=== PATIENT | female | born 1950 | race Caucasian/White ===

== ENCOUNTER 2019-04-13 18:10 | Observation (INO) ==
[2019-04-13] MEDS ORDERED: Isovue-370 500 ML BOTTLE IVP ONE (18:57)
--- NOTE | 2019-04-13 19:03 | Emergency Department Note ---
Disposition Clinical Impression: Pancytopenia Anemia Qualifiers: Anemia type: unspecified type Qualified Code(s): D64.9 - Anemia, unspecified Abdominal pain Qualifiers: Abdominal location: unspecified location Qualified Code(s): R10.9 - Unspecified abdominal pain Disposition: Admitted As Inpatient Condition: Fair Time of Disposition: 20:33 General Adult HPI - General Chief complaint: ED Recheck/Abnormal Lab/Rx Stated complaint: Needs Blood Transfusion Time Seen by Provider: 04/13/19 18:22 Source: patient Mode of arrival: ambulatory Limitations: no limitations Nursing Notes Reviewed: Yes Vital Signs Reviewed: Yes - History of Present Illness HPI Narrative: Patient is a 68-year-old female that presents emergency Department with reports of a low hemoglobin. Patient states that she had not been feeling well and contacted her primary care provider who sent her in for labs and was found to have a hemoglobin of 6.2 and was told to come here to the emergency department. Patient also states that she is been having a lot of diarrhea recently but has not been having any blood in her stool, blood in her urine or blood in her sputum. Patient states that she has felt more distended and bloated. States that she has had abdominal discomfort and specifically in the left upper quadrant. Patient denies any history of cancer. Patient has being on any blood thinners or chemotherapy medications. Patient denies any prior history of liver dysfunction or liver cancer. Pain Scale: 8 - Related Data Allergies Allergy/AdvReac Type Severity Reaction Status Date / Time rosuvastatin [From Crestor] Allergy Cramping Verified 04/13/19 18:13 of the Muscles Sulfa (Sulfonamide Allergy Hives Verified 04/13/19 18:13 Antibiotics) All systems ED: reviewed and negative except as stated. Constitutional: Denies: fever Cardiovascular: Denies: chest pain Respiratory: Denies: dyspnea Gastrointestinal: Reports: abdominal pain, diarrhea. Denies: nausea, vomiting, hematemesis, melena, hematochezia Genitourinary: Denies: urgency, dysuria, frequency, hematuria Neurological: Denies: weakness, numbness, paresthesias Physical Exam - General Limitations: no limitations General appearance: alert, in no apparent distress - Head Head exam: atraumatic, normocephalic - Eye Eye exam: Present: normal appearance, EOMI - Neck Neck exam: Present: normal inspection, full ROM, trachea midline - Respiratory Respiratory exam: Present: normal lung sounds bilaterally. Absent: respiratory distress, wheezes - Cardiovascular Cardiovascular exam: Present: regular rate, normal rhythm, normal heart sounds, +S1, +S2 - Abdominal Exam Abdominal exam: Present: soft, tenderness, distention, normal bowel sounds. Absent: guarding, rebound, rigidity Abdominal tenderness: Present: LUQ, LLQ, mild - Neurological Exam Neurological exam: Present: alert, oriented X3 - Psychiatric Psychiatric exam: Present: normal affect, normal mood - Skin Skin exam: Present: warm, dry, intact Course Vital Signs Temperature 98.3 F 04/13/19 18:13 Pulse Rate 88 04/13/19 18:13 Respiratory Rate 15 04/13/19 18:13 Blood Pressure 156/72 04/13/19 18:13 O2 Sat by Pulse Oximetry 99 04/13/19 18:13 Temperature 98.3 F 04/13/19 18:14 Pulse Rate 88 04/13/19 18:14 Respiratory Rate 15 04/13/19 18:14 Blood Pressure 156/72 04/13/19 18:14 O2 Sat by Pulse Oximetry 99 04/13/19 18:14 Oxygen Delivery Oxygen Delivery Room Air Medical Decision Making - MDM Narrative Medical decision making narrative: Due the patient's into the emergency department with reports of a low hemoglobin we will obtain basic laboratory testing, PTT/INR, type and screen and a CT scan of the abdomen and pelvis to evaluate for possible intra-abdominal pathology. Patient's blood work is returning the patient has a hemoglobin of 6.4, a INR of 1.2. Patient has no active bleeding. Stool occult was obtained which is negative. A CT scan of the abdomen and pelvis was obtained due to the patient stating that she had some abdominal discomfort. The CT of the abdomen and pelvis shows cirrhosis of liver with moderate volume ascites. There is also some transmural thickening of the colon which could be related to the ascites versus possible inflammatory or infectious etiology. One unit of packed red blood cells was ordered. Patient will be admitted to the hospital for further evaluation and management. I called spoke the admitting hospitalist - Medical Records Medical records reviewed: Yes I reviewed the patient's medical records. - Lab Data Lab results reviewed: Yes I reviewed the patient's lab results. Result diagrams: 04/13/19 18:45 04/13/19 18:45 Lab Results 04/13/19 04/13/19 04/13/19 Range/Units 18:45 18:45 18:45 WBC 3.9 L (4.3-11.1) K/mcL RBC 3.45 L (3.82-4.97) M/mcL Hgb 6.4 L (11.5-15.4) g/dL Hct 23.3 L (35.3-44.9) % MCV 67.5 L (83.0-100.0) fL MCH 18.6 L (28.0-33.3) pg MCHC 27.5 L (31.6-35.5) g/dL RDW 19.9 H (11.5-14.5) % Plt Count 83 L (140-400) K/mcL MPV TNP Reticulocyte # (0.05-0.10) M/mcL Immature Gran % 0.0 (0-4) % Seg Neutrophils % 57.6 % Lymphocytes % 32.0 % Monocytes % 8.8 % Eosinophils % 1.3 % Basophils % 0.3 % Neutrophils # 2.3 (1.6-8.9) K/mcL Lymphocytes # 1.3 (0.6-4.6) K/mcL Monocytes # 0.3 (0.0-1.3) K/mcL Eosinophils # 0.1 (0.0-0.6) K/mcL Basophils # 0.0 (0.0-0.2) K/mcL Hypochromasia Present A (Not Present) Microcytosis Present A (Not Present) Percent Retic (1.6-2.8) % Immature Retic Fraction (11.0-38.0) % Retic Hgb Equivalent (28.61-36.33) pg PT 14.0 H (9.4-12.1) Seconds INR 1.2 APTT 35.4 (26.0-36.0) Seconds Sodium 143 (136-145) mEq/L Potassium 3.8 (3.5-5.1) mEq/L Chloride 110 H (98-107) mEq/L Carbon Dioxide 23 (23-29) mEq/L BUN 10 (8-23) mg/dL Creatinine 0.46 L (0.60-1.20) mg/dL Est GFR ( Amer) > 60 (> 60) Est GFR (Non-Af Amer) > 60 (> 60) BUN/Creatinine Ratio 22 (6-26) Glucose 113 H (70-105) mg/dL Calculated Osmolality 296 (280-300) Calcium 9.0 (8.6-10.3) mg/dL Iron 12 L (50-170) mcg/dL % Saturation 2 L (15-50) % Transferrin 417 H (203-362) mg/dL Ferritin < 8 L (10-120) ng/mL Total Bilirubin 1.1 H (0.3-1.0) mg/dL Direct Bilirubin 0.4 H (0.0-0.2) mg/dL Indirect Bilirubin 0.7 (0.0-1.2) mg/dL AST 43 H (13-39) Units/L ALT 22 (7-52) Units/L Alkaline Phosphatase 97 (34-104) Units/L Serum Total Protein 5.7 L (6.4-8.9) g/dL Albumin 3.6 (3.5-5.7) g/dL Globulin 2.1 L (2.4-3.5) g/dL Albumin/Globulin Ratio 1.7 (1.1-2.2) Stool Occult Bld Scrn (Negative) Hep Bs Antigen (Nonreactive) Blood Type Antibody Screen Crossmatch 04/13/19 04/13/19 04/13/19 Range/Units 18:45 18:45 18:45 WBC (4.3-11.1) K/mcL RBC (3.82-4.97) M/mcL Hgb (11.5-15.4) g/dL Hct (35.3-44.9) % MCV (83.0-100.0) fL MCH (28.0-33.3) pg MCHC (31.6-35.5) g/dL RDW (11.5-14.5) % Plt Count (140-400) K/mcL MPV Reticulocyte # 0.05 (0.05-0.10) M/mcL Immature Gran % (0-4) % Seg Neutrophils % % Lymphocytes % % Monocytes % % Eosinophils % % Basophils % % Neutrophils # (1.6-8.9) K/mcL Lymphocytes # (0.6-4.6) K/mcL Monocytes # (0.0-1.3) K/mcL Eosinophils # (0.0-0.6) K/mcL Basophils # (0.0-0.2) K/mcL Hypochromasia (Not Present) Microcytosis (Not Present) Percent Retic 1.6 (1.6-2.8) % Immature Retic Fraction 15.7 (11.0-38.0) % Retic Hgb Equivalent 15.8 L (28.61-36.33) pg PT (9.4-12.1) Seconds INR APTT (26.0-36.0) Seconds Sodium (136-145) mEq/L Potassium (3.5-5.1) mEq/L Chloride (98-107) mEq/L Carbon Dioxide (23-29) mEq/L BUN (8-23) mg/dL Creatinine (0.60-1.20) mg/dL Est GFR ( Amer) (> 60) Est GFR (Non-Af Amer) (> 60) BUN/Creatinine Ratio (6-26) Glucose (70-105) mg/dL Calculated Osmolality (280-300) Calcium (8.6-10.3) mg/dL Iron (50-170) mcg/dL % Saturation (15-50) % Transferrin (203-362) mg/dL Ferritin (10-120) ng/mL Total Bilirubin (0.3-1.0) mg/dL Direct Bilirubin (0.0-0.2) mg/dL Indirect Bilirubin (0.0-1.2) mg/dL AST (13-39) Units/L ALT (7-52) Units/L Alkaline Phosphatase (34-104) Units/L Serum Total Protein (6.4-8.9) g/dL Albumin (3.5-5.7) g/dL Globulin (2.4-3.5) g/dL Albumin/Globulin Ratio (1.1-2.2) Stool Occult Bld Scrn (Negative) Hep Bs Antigen Nonreactive (Nonreactive) Blood Type A POSITIVE Antibody Screen NEGATIVE Crossmatch See Detail 04/13/19 Range/Units 19:55 WBC (4.3-11.1) K/mcL RBC (3.82-4.97) M/mcL Hgb (11.5-15.4) g/dL Hct (35.3-44.9) % MCV (83.0-100.0) fL MCH (28.0-33.3) pg MCHC (31.6-35.5) g/dL RDW (11.5-14.5) % Plt Count (140-400) K/mcL MPV Reticulocyte # (0.05-0.10) M/mcL Immature Gran % (0-4) % Seg Neutrophils % % Lymphocytes % % Monocytes % % Eosinophils % % Basophils % % Neutrophils # (1.6-8.9) K/mcL Lymphocytes # (0.6-4.6) K/mcL Monocytes # (0.0-1.3) K/mcL Eosinophils # (0.0-0.6) K/mcL Basophils # (0.0-0.2) K/mcL Hypochromasia (Not Present) Microcytosis (Not Present) Percent Retic (1.6-2.8) % Immature Retic Fraction (11.0-38.0) % Retic Hgb Equivalent (28.61-36.33) pg PT (9.4-12.1) Seconds INR APTT (26.0-36.0) Seconds Sodium (136-145) mEq/L Potassium (3.5-5.1) mEq/L Chloride (98-107) mEq/L Carbon Dioxide (23-29) mEq/L BUN (8-23) mg/dL Creatinine (0.60-1.20) mg/dL Est GFR ( Amer) (> 60) Est GFR (Non-Af Amer) (> 60) BUN/Creatinine Ratio (6-26) Glucose (70-105) mg/dL Calculated Osmolality (280-300) Calcium (8.6-10.3) mg/dL Iron (50-170) mcg/dL % Saturation (15-50) % Transferrin (203-362) mg/dL Ferritin (10-120) ng/mL Total Bilirubin (0.3-1.0) mg/dL Direct Bilirubin (0.0-0.2) mg/dL Indirect Bilirubin (0.0-1.2) mg/dL AST (13-39) Units/L ALT (7-52) Units/L Alkaline Phosphatase (34-104) Units/L Serum Total Protein (6.4-8.9) g/dL Albumin (3.5-5.7) g/dL Globulin (2.4-3.5) g/dL Albumin/Globulin Ratio (1.1-2.2) Stool Occult Bld Scrn Negative (Negative) Hep Bs Antigen (Nonreactive) Blood Type Antibody Screen Crossmatch - Radiology Data Radiology results reviewed: Yes I reviewed the patient's radiology results. Abdomen/Pelvis CT 04/13/19 18:57 IMPRESSION: Cirrhosis with portal hypertension, resulting in moderate volume ascites along with mesenteric fat stranding. There is mural thickening of the large bowel on right and to a lesser extent small bowel within the left abdomen. That is nonspecific, and may be secondary to hypoproteinemia coupled with portal hypertension. However, the possibility of infectious, inflammatory, or ischemic enteritis/colitis also remains in the differential. Cholelithiasis. D/ / Fausto Hackett MD / Fausto Hackett MD Interpreting Provider: Fausto Hackett MD Critical Care Time Critical Care Time: Yes Total Critical Care Time: 35 Attestation: Please see my note Attestation Statement - Attestation Attestation: I examined this patient and my medical decision-making was reviewed with the Resident Physician. I agree with the documented findings, disposition and treatment plan as described except to the extent set forth below. Patient at this time does have evidence of anemia, the patient does appear somewhat pale, she does have pale conjunctiva. The patient has some pain to the left upper quadrant. There is tenderness to the lower left rib region as well. The patient has clear breath sounds on examination. The patient states that she has been having some lightheadedness and shortness of breath as well. Patient states that she has been feeling somewhat fatigued. The patient at this point I did blood work done earlier yesterday, this showed evidence of anemia. The patient appears to have pancytopenia. Patient denies any liver problems. She denies any black stools, however she has been having chronic diarrhea issues. Patient appears to have microcytic anemia. But she also has a pancytopenia, she is found on CT to have cirrhosis, with moderate volume ascites. Patient shows no evidence of sepsis. The patient at this point time is going to be admitted. She was transfused one unit of blood down in the emergency room. Patient at this point in time will be admitted in stable condition to the floor. CRITICAL CARE TIME OF 35 MINUTES PERFORMING THIS INDIVIDUAL OUTSIDE OF SEPARATELY BILLABLE PROCEDURES. THIS INCLUDES BEDSIDE EVALUATION, INTERPRETATION OF EKG AND LAB TESTS AND CONSULTATIONS.e
[2019-04-13 19:07] LABS: Red Cell Distribution Width 19.9 % (11.5-14.5)
[2019-04-13 19:09] LABS: Basophils % 0.3 %; Eosinophils # 0.1 K/mcL (0.0-0.6); Eosinophils % 1.3 %; Hematocrit 23.3 % (35.3-44.9); Hemoglobin 6.4 g/dL (11.5-15.4); Mean Corpuscular HGB Conc 27.5 g/dL (31.6-35.5); Mean Corpuscular Hemoglobin 18.6 pg (28.0-33.3); Mean Corpuscular Volume 67.5 fL (83.0-100.0); Monocytes # 0.3 K/mcL (0.0-1.3); Monocytes % 8.8 %; Red Blood Count 3.45 M/mcL (3.82-4.97); Segmented Neutrophils % 57.6 %; White Blood Count 3.9 K/mcL (4.3-11.1)
[2019-04-13 19:13] LABS: Lymphocytes # 1.3 K/mcL (0.6-4.6); Neutrophils # 2.3 K/mcL (1.6-8.9)
[2019-04-13 19:15] LABS: Hypochromasia Present (Not Present); Microcytosis Present (Not Present); Platelet Count 83 K/mcL (140-400)
[2019-04-13 19:16] LABS: INR 1.2
[2019-04-13 19:19] LABS: Activated Partial Thrombo Time 35.4 Seconds (26.0-36.0)
[2019-04-13 19:26] LABS: BUN/Creatinine Ratio 22 (6-26); Blood Urea Nitrogen 10 mg/dL (8-23); Carbon Dioxide 23 mEq/L (23-29); Chloride 110 mEq/L (98-107); Glucose 113 mg/dL (70-105); Osmolality,Calculated 296 (280-300); Potassium 3.8 mEq/L (3.5-5.1); Sodium 143 mEq/L (136-145); eGFR For African Americans > 60 (> 60); eGFR For Non-African Americans > 60 (> 60)
[2019-04-13] MEDS ORDERED: *HR* Dextrose 50 % in Water (Syg) 50 ML SYRINGE IVP PRN (20:39)
[2019-04-13] MEDS ORDERED: Dextrose Gel 15 GM/37.5 ML TUBE PO PRN ×2 (20:39)
[2019-04-13] MEDS ORDERED: Ringers Solution, Lactated 1,000 ML IVC SCH (21:00)
[2019-04-13 21:07] LABS: Immature Reticulocyte % 15.7 % (11.0-38.0); Retculocyte # 0.05 M/mcL (0.05-0.10); Reticulocyte % 1.6 % (1.6-2.8)
[2019-04-13 21:15] LABS: % Iron Saturation 2 % (15-50); Alanine Aminotransferase 22 Units/L (7-52); Albumin 3.6 g/dL (3.5-5.7); Albumin/Globulin Ratio 1.7 (1.1-2.2); Alkaline Phosphatase 97 Units/L (34-104); Aspartate Amino Transferase 43 Units/L (13-39); Bilirubin,Direct 0.4 mg/dL (0.0-0.2); Bilirubin,Indirect 0.7 mg/dL (0.0-1.2); Bilirubin,Total 1.1 mg/dL (0.3-1.0); Globulin 2.1 g/dL (2.4-3.5); Iron 12 mcg/dL (50-170); Total Protein 5.7 g/dL (6.4-8.9); Transferrin 417 mg/dL (203-362)
--- NOTE | 2019-04-13 21:24 | Internal Med History&Physical ---
Date of Encounter: 04/13/19 Time of Encounter: 21:22 Internal Medicine - H&P: HPI Chief complaint: abdominal pain Admitted From: Home Plans for Post Hospital Care: Home History of present illness: Mandy Tapia is a 68-year-old woman with diabetes, hypertension and coronary artery disease with 1 stent who has been having diarrhea on and off for years that she and her physician attributed to metformin but over the past one month has developed abdominal distention and bloating with significant pain in her left upper quadrant coupled with worsening of her diarrhea. She also reports increasing fatigue, feeling cold and decreased exercise tolerance. She denies seeing blood in her stool or vomiting blood at any time. She also denies fever and chills. She reports the stool as being occasionally watery and other times just loose but that it happens multiple times a day. Her PCP did routine blood work yesterday and today was noted to have a hemoglobin of 6.2 so she was contacted and instructed to come to the emergency room for further evaluation. Repeat blood work confirmed this finding. CT scan of her abdomen was done and showed cirrhosis with portal hypertension resulting in moderate volume ascites, mesenteric fat stranding, splenomegaly and multiple gastric and gastroesophageal varices. She reports having declined colonoscopies in the past, does not drink alcohol and is unaware of contagion with viral hepatitis. She is admitted for further care. Vitals: Reviewed General: Well-developed white woman lying comfortably in bed in no acute distress. Skin: Warm, dry and pale. HEENT: Moist mucous membranes. Mild conjunctivae pallor. Neck: No lymphadenopathy. No JVD. No carotid bruits. No palpable thyroid. Chest: Normal thoracic expansion. Normal breath sounds. Clear to auscultation. Heart: Normal S1 & S2; rhythmic. No rubs or murmurs. Abdomen: Distended, soft and tender to palpation in the left upper quadrant. No peritoneal reaction. Extremities: No clubbing, cyanosis or edema. No calf tenderness. Normal distal pulses. Neurological: Awake, alert and oriented to person, place and time. No focal deficits. Psych: Affect appropriate. Assessment/Plan 1. Symptomatic anemia: Etiology unclear. It may very well be from chronic disease noting that she is equally leukopenic and thrombocytopenic as can be seen in chronic liver disease which we now have evidence of. Will need to ensure there is no blood loss component however given the varicosal findings in the GI tract, the hypochromia and microcytosis. FOBT is negative which is reassuring but she will still benefit from endoscopic evaluations. Will transfuse 1U pRBC now and assess her response to this. Keep her NPO past midnight pending GI evaluation in the morning. 2. Liver cirrhosis: New diagnosis and the etiology is yet to be determined. Differentials include NAFLD given her obesity, hyperlipidemia and diabetes (c alculated fibrosis score of 3.788), viral hepatitis, autoimmune hepatitis, primary biliary cirrhosis and even celiac disease or primary sclerosing cholangitis given the association of chronic postprandial diarrhea. Congestive hepatopathy, alpha-1 antitrypsin and hemochromatosis are unlikely. Will obtain LFTs, check viral hepatitis serologies, BEATRICE, antismooth muscle & antimitochondrial Abs in the interim. GI consult requested. 3. Chronic diarrhea: Will get a stool panel to rule out any infectious etiology. Will also check a celiac panel. 4. Diabetes: Recent A1C showing excellent control. Place on sliding scale for now. Past Med Surg Social Fam HX - Past Medical History Medical history: myocardial infarction Psychiatric history: no psych history - Social History Smoking Status: Never smoker Smokeless Tobacco Status: No Alcohol use: none Drug use: none Internal Medicine - H&P: Meds Allergy/AdvReac Type Severity Reaction Status Date / Time rosuvastatin [From Crestor] Allergy Cramping Verified 04/13/19 18:13 of the Muscles Sulfa (Sulfonamide Allergy Hives Verified 04/13/19 18:13 Antibiotics) All Systems PM: A 10-system review of systems was performed and is negative for pertinent findings except as documented above in the HPI. Family history reviewed and found non-contributory. - Constitutional Vitals: Temp Pulse Resp BP Pulse Ox 98.3 F 88 15 156/72 99 04/13/19 18:14 04/13/19 18:14 04/13/19 18:14 04/13/19 18:14 04/13/19 18:14 Exam: . Internal Med - H&P Results - Labs CBC & Chem 7: 04/13/19 18:45 04/13/19 18:45 Labs: Short CBC 04/13/19 Range/Units 18:45 WBC 3.9 L (4.3-11.1) K/mcL Hgb 6.4 L (11.5-15.4) g/dL Hct 23.3 L (35.3-44.9) % Plt Count 83 L (140-400) K/mcL Neutrophils # 2.3 (1.6-8.9) K/mcL BMP 04/13/19 18:45 Sodium 143 Potassium 3.8 Chloride 110 H Carbon Dioxide 23 BUN 10 Creatinine 0.46 L Glucose 113 H Calcium 9.0 Liver Function 04/13/19 Range/Units 18:45 Total Bilirubin 1.1 H (0.3-1.0) mg/dL Direct Bilirubin 0.4 H (0.0-0.2) mg/dL AST 43 H (13-39) Units/L ALT 22 (7-52) Units/L Alkaline Phosphatase 97 (34-104) Units/L Albumin 3.6 (3.5-5.7) g/dL - Impressions ITS Impressions Abdomen/Pelvis CT 04/13/19 18:57 IMPRESSION: Cirrhosis with portal hypertension, resulting in moderate volume ascites along with mesenteric fat stranding. There is mural thickening of the large bowel on right and to a lesser extent small bowel within the left abdomen. That is nonspecific, and may be secondary to hypoproteinemia coupled with portal hypertension. However, the possibility of infectious, inflammatory, or ischemic enteritis/colitis also remains in the differential. Cholelithiasis. D/ / Fausto Hackett MD / Fausto Hackett MD Interpreting Provider: Fausto Hackett MD - Time Spent With Patient Total time spent is greater than 50% in coordination of care (as documented) at patient's floor/unit and/or counseling patient:
[2019-04-13 21:28] LABS: Hepatitis B Surface Antigen Nonreactive (Nonreactive)
[2019-04-13 21:32] LABS: Ferritin < 8 ng/mL (10-120)
[2019-04-13] MEDS ORDERED: 0.9 % Sodium Chloride 250 ML ONE (21:39)
[2019-04-13 21:57] LABS: Hepatitis C Virus Antibody Nonreactive (Nonreactive)
[2019-04-13 21:58] LABS: Hepatitis B Core IgM Nonreactive (Nonreactive)
[2019-04-13 21:59] LABS: Hepatitis A Antibody IgM Nonreactive (Nonreactive)
[2019-04-13] MEDS ORDERED: Ondansetron 4 MG/2 ML VIAL IVP ONE (22:22)
[2019-04-14] MEDS: Insulin LISPRO 300 UNITS/3 ML VIAL SQ SCH ×4 (00:38→17:20)
[2019-04-14] MEDS ORDERED: traMADol 50 MG TABLET PO ONE (01:09)
[2019-04-14] MEDS: *HR* Promethazine 25 MG/ML VIAL IVP PRN ×4 (01:30→16:15)
[2019-04-14 06:29] LABS: Basophils % 0.3 %; Immature Granulocytes % 0.3 % (0-4); Mean Corpuscular Hemoglobin 19.9 pg (28.0-33.3); Red Blood Count 3.52 M/mcL (3.82-4.97); Red Cell Distribution Width 21.2 % (11.5-14.5)
[2019-04-14 06:31] LABS: Eosinophils # 0.1 K/mcL (0.0-0.6); Eosinophils % 1.9 %; Hematocrit 24.1 % (35.3-44.9); Lymphocytes # 0.9 K/mcL (0.6-4.6); Lymphocytes % 29.2 %; Mean Corpuscular Volume 68.5 fL (83.0-100.0); Monocytes # 0.3 K/mcL (0.0-1.3); Monocytes % 9.1 %; Neutrophils # 1.8 K/mcL (1.6-8.9); Segmented Neutrophils % 59.2 %; White Blood Count 3.1 K/mcL (4.3-11.1)
[2019-04-14 06:32] LABS: Platelet Count 71 K/mcL (140-400)
[2019-04-14 06:49] LABS: Anisocytosis 2+ (Not Present); Hypochromasia Present (Not Present)
[2019-04-14 06:50] LABS: Platelet Estimate Decreased (Normal); Polychromasia 1+ (Not Present)
[2019-04-14 11:52] LABS: Hematocrit 24.5 % (35.3-44.9)
[2019-04-14] MEDS ORDERED: 0.9 % Sodium Chloride 250 ML ONE ×2 (11:57→15:33)
--- NOTE | 2019-04-14 12:32 | Gastroenterology Consult Note ---
Date of Encounter: 04/14/19 Time of Encounter: 11:00 - Assessment and plan (1) Abdominal pain Status: Acute Assessment and plan: Plan EGD and colonoscopy. Discussed risks and benefits she signed informed consent Qualifiers: Abdominal location: unspecified location Qualified Code(s): R10.9 - Unspeci fied abdominal pain (2) Anemia Status: Acute Assessment and plan: Plan EGD and colonoscopy risks and benefits discussed scheduled for tomorrow Qualifiers: Anemia type: iron deficiency Iron deficiency anemia type: other iron deficiency Qualified Code(s): D50.8 - Other iron deficiency anemias (3) Cirrhosis of liver Status: Acute Assessment and plan: Most likely secondary to nonalcoholic fatty liver disease. the other markers are pending while HEPATITIS PROFILE IS NEGATIVE We discussed her cirrhosis and its management and made aware that she she had decompensated cirrhosis given the ascites portal hypertension and varices on CT scan Qualifiers: Hepatic cirrhosis type: unspecified hepatic cirrhosis Ascites presence: with ascites Qualified Code(s): K74.60 - Unspecified cirrhosis of liver; R18.8 - Other ascites (4) Pancytopenia Status: Acute Assessment and plan: Secondary to hypersplenism secondary cirrhosis and portal hypertension (5) Diabetes type 2, controlled Status: Chronic Assessment and plan: Per hospitalist service Qualifiers: 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 Tapia is a 68 year old female presents with severe anemia microcytic indices and cirrhosis. She does not drink any alcohol is never had no history of any melena hematochezia or hematemesis. CT scan reveals cirrhosis with ascites and portal hypertension and esophageal varices. She was unaware that she had cirrhosis. Patient was diabetes and other issues as described below. Past Med Surg Social Fam HX - Past Medical History Medical history: myocardial infarction Psychiatric history: no psych history - Social History Smoking Status: Former smoker Smokeless Tobacco Status: No Alcohol use: none Drug use: none - Gastrointestinal Gastrointestinal: Present: as per HPI, abdominal pain, bloating, dyspepsia - Constitutional Constitutional: as per HPI, fatigue - Constitutional Vitals: Temp Pulse Resp BP Pulse Ox 97.4 F L 74 18 145/75 97 04/14/19 12:10 04/14/19 12:10 04/14/19 12:10 04/14/19 12:10 04/14/19 12:10 - Head Head exam: Present: atraumatic, normal inspection, normocephalic - Eye Eye exam: Present: EOMI, PERRL Additional comments: pallor Results - Labs CBC & Chem 7: 04/15/19 10:04 04/15/19 10:04 Labs: Entire Visit 04/14/19 04/14/19 06:10 11:32 Hgb 7.0 L 7.0 L Hct 24.1 L 24.5 L - ABG ABG results: PT/INR, D-dimer PT 14.0 Seconds (9.4-12.1) H 04/13/19 18:45 - Impressions Impressions Abdomen/Pelvis CT 04/13/19 18:57 IMPRESSION: Cirrhosis with portal hypertension, resulting in moderate volume ascites along with mesenteric fat stranding. There is mural thickening of the large bowel on right and to a lesser extent small bowel within the left abdomen. That is nonspecific, and may be secondary to hypoproteinemia coupled with portal hypertension. However, the possibility of infectious, inflammatory, or ischemic enteritis/colitis also remains in the differential. Cholelithiasis. D/ / Fausto Hackett MD / Fausto Hackett MD Interpreting Provider: Fausto Hackett MD Consult Discharge Plan - Plan Instructions: Simethicone (By mouth), Pantoprazole (By mouth), Colonoscopy (DC), Cirrhosis (DC), Upper Gastrointestinal Endoscopy (DC), Anemia (GEN) Referrals: Kavon Newsome MD [Partnered Physician] - 04/15/19 (web requested 04/15/2019) Brenna Armstrong CNP [Primary Care Provider] - (Web requested 04/15/2019) Prescriptions: Ferrous Sulfate 324 mg PO DAILY 15 Days #15 tablet. Simethicone [Phazyme] 250 mg PO BIDWM 15 Days #30 capsule Pantoprazole Sodium [Protonix] 40 mg PO DAILY 15 Days #15 tablet.
--- NOTE | 2019-04-14 12:42 | Internal Med Progress Note ---
Hospitalist Progress Note - Encounter Date of Encounter: 04/14/19 Time of Encounter: 12:38 - Subjective Interval History: Pt was seen and examined at bedside. Patient reports mild abdominal discomfort. Denied episodes of diarrhea since she was hospitalized. He denied any fever and chills. Denied any nausea and vomiting. - Exam Vitals: Temp Pulse Resp BP Pulse Ox 98.1 F 74 18 145/75 100 04/14/19 12:16 04/14/19 12:16 04/14/19 12:16 04/14/19 12:16 04/14/19 12:16 Exam: General: A & O 3, In no acute distress HENNT: PERRLA. Head atraumatic and makes supple CVS S1 and S2 regular, no murmur RS: Clear to air entry bilaterally, no wheeze, no crackles Abdomen: Soft and nontender. Distended. Bowel sounds 4. No rebound tenderness and guarding Extremities: No cyanosis, clubbing, and edema Neurology: Cranial II-XII ormal. Motor strength 5/5 bilaterally. Sensation intact - Assessment and Plan (1) Anemia Current Visit: Yes Status: Acute Assessment and Plan: Medicines medicines to the hospital with symptomatic anemia. Patient complaining of fatigue and tired. Patient also reported abdominal pain. Upon initial evaluation patient is having iron deficiency anemia. Patient also found out chronic liver disease with cirrhosis. Patient received 1 transfusion yesterday. We will give transfusion 2 today. Repeat H&H. FOBT negative. Iron studies showed low ferritin. Start on ferrous sulfate daily GI on consult. Plan is to do EGD and colonoscopy tomorrow. (2) Cirrhosis of liver Current Visit: Yes Status: Acute Assessment and Plan: Pt presents to ER with complaint of abdominal pain and diarrhea. CT scan showed cirrhosis with moderate ascites. Patient denies any alcohol use. AST and ALT mildly elevated. Patient's Andra for viral hepatitis negative. Autoimmune workup ordered. GI is on consult. On exam patient does not have a severe abdominal tenderness. SBP is less likely. IR consulted. IR does not think t hat patient has much fluid buildup for paracentesis. GI on consult will continue to monitor. (3) Diabetes type 2, controlled Current Visit: Yes Status: Chronic Assessment and Plan: on sliding scale insulin and will continue to monitor. (4) Essential (primary) hypertension Current Visit: Yes Status: Chronic Assessment and Plan: Resume home medication. (5) CAD (coronary artery disease) Current Visit: Yes Status: Acute Assessment and Plan: We will resume home medication after confirmation. DVT Prophylaxis: YOLANDA Varma - Time Spent with Patient Total time spent is greater than 50% in coordination of care (as documented) at patient's floor/unit and/or counseling patient: 25 - 35 minutes Plan of Care Discussed with: patient Internal Medicine: Result - Labs CBC & Chem 7: 04/14/19 11:32 04/13/19 18:45 Labs: Short CBC 04/13/19 04/14/19 04/14/19 Range/Units 18:45 06:10 11:32 WBC 3.9 L 3.1 L (4.3-11.1) K/mcL Hgb 6.4 L 7.0 L 7.0 L (11.5-15.4) g/dL Hct 23.3 L 24.1 L 24.5 L (35.3-44.9) % Plt Count 83 L 71 L (140-400) K/mcL Neutrophils # 2.3 1.8 (1.6-8.9) K/mcL BMP 04/13/19 18:45 Sodium 143 Potassium 3.8 Chloride 110 H Carbon Dioxide 23 BUN 10 Creatinine 0.46 L Glucose 113 H Calcium 9.0 Liver Function 04/13/19 Range/Units 18:45 Total Bilirubin 1.1 H (0.3-1.0) mg/dL Direct Bilirubin 0.4 H (0.0-0.2) mg/dL AST 43 H (13-39) Units/L ALT 22 (7-52) Units/L Alkaline Phosphatase 97 (34-104) Units/L Albumin 3.6 (3.5-5.7) g/dL - ABG Interpretation ABG results: PT/INR, D-dimer PT 14.0 Seconds (9.4-12.1) H 04/13/19 18:45 - Impressions Impressions Abdomen/Pelvis CT 04/13/19 18:57 IMPRESSION: Cirrhosis with portal hypertension, resulting in moderate volume ascites along with mesenteric fat stranding. There is mural thickening of the large bowel on right and to a lesser extent small bowel within the left abdomen. That is nonspecific, and may be secondary to hypoproteinemia coupled with portal hypertension. However, the possibility of infectious, inflammatory, or ischemic enteritis/colitis also remains in the differential. Cholelithiasis. D/ / Fausto Hackett MD / Fausto Hackett MD Interpreting Provider: Fausto Hackett MD - VTE Documentation of Mechanical Device: Graduated compression elastic hosiery Consult Discharge Plan - Plan Referrals: Brenna Armstrong, STITCH BONDING MACHINE TENDER [Primary Care Provider] - (1) Anemia Qualifiers: Anemia type: unspecified type Qualified Code(s): D64.9 - Anemia, unspecified (3) Diabetes type 2, controlled Qualifiers: Diabetes mellitus prison insulin use: without prison use Diabetes mellitus complication status: with unspecified complications Qualified Code(s): E11.8 - Type 2 diabetes mellitus with unspecified complications
[2019-04-14] MEDS ORDERED: Nitroglycerin 0.4 MG TAB.SUBL SL PRN (17:29)
[2019-04-14] MEDS: Lisinopril 20 MG TABLET PO SCH (17:52)
[2019-04-14 17:57] LABS: Adenovirus F 40/41 PCR Not detected (Not detect); Astrovirus PCR Not detected (Not detect); C.difficile Toxin A/B Gene PCR Not detected (Not detect); Campylobacter by PCR Not detected (Not detect); Cryptosporidium by PCR Not detected (Not detect); Cyclospora cayetanensis PCR Not detected (Not detect); E. coli O157 by PCR Not detected (Not detect); Entamoeba histolytica PCR Not detected (Not detect); Enteroaggregative E.coli(EAEC) Not detected (Not detect); Enteropathogenic E.coli(EPEC) Not detected (Not detect); Enterotoxigenic E.coli (ETEC) Not detected (Not detect); Giardia lamblia PCR Not detected (Not detect); Norovirus GI/GII PCR Not detected (Not detect); Plesiomonas shigelloides PCR Not detected (Not detect); Rotavirus A PCR Not detected (Not detect); Salmonella PCR Not detected (Not detect); Sapovirus PCR Not detected (Not detect); Shig/EnteroinvasiveE coli EIEC Not detected (Not detect); Shigalike tox-prod E coli STEC Not detected (Not detect); Vibrio PCR Not detected (Not detect); Vibrio cholerae PCR Not detected (Not detect); Yersinia enterocolitica PCR Not detected (Not detect)
[2019-04-14] MEDS: Famotidine 20 MG TABLET PO SCH (20:32)
[2019-04-14 21:01] LABS: Hematocrit 33.1 % (35.3-44.9); Hemoglobin 9.9 g/dL (11.5-15.4)
[2019-04-15] MEDS: Insulin LISPRO 300 UNITS/3 ML VIAL SQ SCH ×2 (00:05→05:53)
[2019-04-15] MEDS ORDERED: *HR* Propofol 200 MG/20 ML VIAL IVP ONE (07:10)
[2019-04-15] MEDS ORDERED: Lidocaine -MPF 2% 2 ML VIAL ONE (07:10)
[2019-04-15] MEDS ORDERED: Ondansetron 4 MG/2 ML VIAL ONE (07:10)
[2019-04-15] MEDS ORDERED: *HR* Succinylcholine 200 MG/10 ML VIAL IVP ONE (07:10)
--- NOTE | 2019-04-15 07:35 | Anesthesia Evaluation PreOp ---
Date of Encounter: 04/15/19 Time of Encounter: 07:40 - Past History Planned Operation: Double Endo Cardiac History: HTN, Hyperlipidemia, Cardiac Stent (CADS Stent X1), Other (Anemia) Pulmonary History: Denies Any Significant HX AUTOMOTIVE VEHICLE INSPECTOR History: Denies Any Significant HX Other Medical History: Hepatic (Cirrhosis), Diabetes Type II Anesthesia History: No Prior Anesthetic Complications : No Alcohol Use: none Drug use: none Medications and Allergies Aspirin [Lo-Dose Aspirin EC] 81 mg PO DAILY 04/14/19 [History] Atorvastatin Calcium [Lipitor] 80 mg PO QPM 04/14/19 [History] Diphenoxylate/Atropine [Lomotil 2.5 mg/0.025 mg] 1 tab PO QID PRN 04/14/19 [ History] GlipiZIDE XL (24 HR) [Glucotrol XL] 10 mg PO DAILY 04/14/19 [History] Lisinopril [Zestril] 20 mg PO DAILY 04/14/19 [History] Nitroglycerin [Nitrostat] 0.4 mg SL Q5MIN PRN MDD X3 DOSES 04/14/19 [History] Ondansetron HCl [Zofran] 4 mg PO QID PRN 04/14/19 [History] Raloxifene [Evista] 60 mg PO DAILY 04/14/19 [History] Sitagliptin Phos/Metformin HCl [Janumet 50-1,000 mg Tablet] 1 tab PO BIDWM 04/14/19 [History] hydrOXYzine HCl [Hydroxyzine HCl] 25 mg PO BID PRN 04/14/19 [History] raNITIdine HCl [Zantac] 150 mg PO BID 04/14/19 [History] Allergy/AdvReac Type Severity Reaction Status Date / Time rosuvastatin [From Crestor] Allergy Cramping Verified 04/14/19 14:22 of the Muscles Sulfa (Sulfonamide Allergy Hives Verified 04/14/19 14:22 Antibiotics) TAPE AdvReac Hives Uncoded 04/14/19 14:22 - Meds/Allergy Pre-op Review Medications Reviewed: Yes Allergies Reviewed: Yes Beta Blockers on Current Med List: No Anesthesia Results - Labs 04/14/19 20:26 04/13/19 18:45 Anesthesia Exam O2 Sat Weight 88.5 kg O2 Sat by Pulse Oximetry 96 O2 Sat by Pulse Oximetry 97 O2 Sat by Pulse Oximetry 100 O2 Sat by Pulse Oximetry 98 O2 Sat by Pulse Oximetry 99 O2 Sat by Pulse Oximetry 99 O2 Sat by Pulse Oximetry 100 O2 Sat by Pulse Oximetry 100 O2 Sat by Pulse Oximetry 97 O2 Sat by Pulse Oximetry 97 O2 Sat by Pulse Oximetry 100 Vital Signs Temp Pulse Resp BP Pulse Ox 98.3 F 88 15 156/72 99 04/13/19 18:13 04/13/19 18:13 04/13/19 18:13 04/13/19 18:13 04/13/19 18:13 Height: 5'2 Weight: 195 lbs NPO (# of Hours): MN Pain Scale: 0 - HEENT Pupil (Motor): Pupils equal, EOMI Mallampati: III Teeth: Edentulous Oral Opening: Less than or equal to 3 - AUTOMOTIVE VEHICLE INSPECTOR LOC: Oriented AUTOMOTIVE VEHICLE INSPECTOR Motor: Normal RUE, Normal LUE, Normal RLE, Normal LLE, Normal Face AUTOMOTIVE VEHICLE INSPECTOR Sensory: Normal: RUE, LUE, RLE, LLE, Face - Cardiac Rhythm: Regular Murmur: None JVD: No Carotid Bruit: No - Pulmonary Breath Sounds: bilateral Clear Respiratory Effort: Symmetrical Anesthesia Assess/Plan ASA Score: 3 (HTN Anemia CAD DM) Level of consciousness: Cooperative, Oriented Anesthetic Plan: MAC Autologous Blood: No Monitoring Plan: Standard Monitors Recovery Plan: Other (Discussed MAC, agrees to proceed)
[2019-04-15] MEDS: Famotidine 20 MG TABLET PO SCH (07:37)
[2019-04-15] MEDS: Lisinopril 20 MG TABLET PO SCH (07:37)
[2019-04-15] MEDS ORDERED: Simethicone 40 MG/0.6 ML MLS IR ONE (07:51)
[2019-04-15] MEDS ORDERED: Aspirin 81 MG TAB.CHEW PO SCH (09:00)
--- NOTE | 2019-04-15 09:49 | Anesthesia Evaluation Post Op ---
Date of Encounter: 04/15/19 Time of Encounter: 09:40 - Vital Signs Vital Signs: Vital Signs/O2 Sat/Glucose, Most Current Temp Pulse Resp BP Pulse Ox 04/15/19 08:53 80 16 136/68 99 04/15/19 07:05 99.0 F 84 16 144/74 - Lungs Lungs: Clear Ascult./Percussion - Airway Airway: Non-obstructed - Cardiovascular Regular Rate - Mental Status Mental Status: Alert & Oriented, Answers Appropriately - Pain Pain Scale: 0 - Nausea Vomiting Nausea Vomiting: Not Present - Hydration Hydration: NPO - Discharge PostOp Status: Transfer Patient to floor
[2019-04-15 10:27] VITALS: BP 112/55
[2019-04-15 10:38] LABS: Immature Granulocytes % 0.2 % (0-4); Mean Corpuscular Hemoglobin 21.7 pg (28.0-33.3)
[2019-04-15 10:40] LABS: Basophils % 0.5 %; Eosinophils # 0.1 K/mcL (0.0-0.6); Eosinophils % 1.4 %; Hematocrit 33.2 % (35.3-44.9); Immature Platelets 11.1 % (1.1-6.1); Lymphocytes # 1.1 K/mcL (0.6-4.6); Lymphocytes % 25.4 %; Mean Corpuscular HGB Conc 30.1 g/dL (31.6-35.5); Monocytes # 0.3 K/mcL (0.0-1.3); Monocytes % 6.8 %; Neutrophils # 2.8 K/mcL (1.6-8.9); Red Blood Count 4.61 M/mcL (3.82-4.97); Red Cell Distribution Width 22.8 % (11.5-14.5); Segmented Neutrophils % 65.7 %; White Blood Count 4.3 K/mcL (4.3-11.1)
[2019-04-15 10:45] LABS: Platelet Count 77 K/mcL (140-400)
[2019-04-15 10:59] LABS: Alanine Aminotransferase 24 Units/L (7-52); Albumin 3.5 g/dL (3.5-5.7); Albumin/Globulin Ratio 1.8 (1.1-2.2); Alkaline Phosphatase 91 Units/L (34-104); Aspartate Amino Transferase 44 Units/L (13-39); Bilirubin,Total 2.4 mg/dL (0.3-1.0); Blood Urea Nitrogen 6 mg/dL (8-23); Calcium 8.9 mg/dL (8.6-10.3); Carbon Dioxide 25 mEq/L (23-29); Chloride 112 mEq/L (98-107); Glucose 108 mg/dL (70-105); Osmolality,Calculated 302 (280-300); Potassium 3.6 mEq/L (3.5-5.1); Sodium 147 mEq/L (136-145); Total Protein 5.5 g/dL (6.4-8.9)
[2019-04-15 11:40] LABS: BUN/Creatinine Ratio 13 (6-26); eGFR For African Americans > 60 (> 60); eGFR For Non-African Americans > 60 (> 60)
[2019-04-15] MEDS ORDERED: Insulin LISPRO 300 UNITS/3 ML VIAL SQ SCH ×2 (12:00→21:00)
[2019-04-15] MEDS ORDERED: Simethicone 40 MG/0.6 ML MLS PO STA (14:19)
[2019-04-15] MEDS ORDERED: Pantoprazole 40 MG VIAL IVP ONE (14:20)
--- NOTE | 2019-04-15 14:26 | Discharge Summary ---
- NOTES TO OUTPATIENT PROVIDER Notes to Outpatient Provider: Patient presents to the hospital with complaint of abdominal pain. Patient found to have liver cirrhosis with gastroesophageal arises. GI consult was placed patient underwent EGD and colonoscopy. Follow-up with patient in 1 week follow-up with GI in 1 week. Follow up on celiac panel, antimitochondrial antibody, anti-smooth muscle antibody. Orders not resulted at time of discharge: Pending orders 04/13/19 04:00 BEATRICE IgG [place] rflx IFA Stat Celiac Disease Reflex [place] Stat Mitochondrial M2 Antibody, IgG Stat Smooth Muscle Antibody, IgG Stat Estimated PT Needs at Discharge: None Date of Encounter: 04/15/19 Time of Encounter: 14:20 - Discharge Diagnosis (1) Cirrhosis of liver Priority: Primary Status: Acute Qualifiers: Hepatic cirrhosis type: unspecified hepatic cirrhosis Ascites presence: with ascites Qualified Code(s): K74.60 - Unspecified cirrhosis of liver; R18.8 - Other ascites (2) Anemia Priority: Secondary Status: Acute Qualifiers: Anemia type: iron deficiency Iron deficiency anemia type: other iron deficiency Qualified Code(s): D50.8 - Other iron deficiency anemias (3) Diabetes type 2, controlled Priority: Secondary Status: Chronic Qualifiers: Diabetes mellitus penitentiary insulin use: without rat exterminator use Diabetes mellitus complication status: with unspecified complications Qualified Code(s): E11.8 - Type 2 diabetes mellitus with unspecified complications (4) Essential (primary) hypertension Priority: Secondary Status: Chronic (5) CAD (coronary artery disease) Priority: Secondary Status: Acute Qualifiers: Coronary Disease-Associated Artery/Lesion type: [place] artery [place] vs. transplanted heart: [place] heart Associated angina: without angina Qualified Code(s): I25.10 - Atherosclerotic heart disease of [place] coronary artery without angina pectoris Hospital course: Ms. Tapia is a 68 year old female was admitted to hospital for symptom and anemia and abdominal pain. Upon presentation patient was found to be anemic with hemoglobin around 6-7. Patient is to pick RBC transfusion 3. Recent hemoglobin on discharge was 10. A CT was done and patient found to have cirrhosis. GI was placed on consult. Patient underwent EGD and colonoscopy. EGD and colonoscopy was negative for any active bleeding. Patient was discharged in stable condition. Follow up with patient in 1 week with primary care provider. Follow up with GI in 1 week. She was advised to continue Zantac. Patient was prescribed Protonix daily and also Symantec on to be taken twice daily for indigestion. Patient discharged in stable condition. He was also discharged on ferrous sulfate 325 mg to be taken daily. Discharge discussed with: patient, nurse, area development consultant - Time Spent with Patient Total time spent providing and/or coordinating discharge services: 35 Time spent: Greater than 30 minutes - Discharge Medications Prescriptions: New Simethicone [Phazyme] 250 mg PO BIDWM 15 Days #30 capsule Pantoprazole Sodium [Protonix] 40 mg PO DAILY 15 Days #15 tablet.dr Continued Sitagliptin Phos/Metformin HCl [Janumet 50-1,000 mg Tablet] 1 tab PO BIDWM raNITIdine HCl [Zantac] 150 mg PO BID Nitroglycerin [Nitrostat] 0.4 mg SL Q5MIN PRN MDD X3 DOSES PRN Reason: Chest Pain Lisinopril [Zestril] 20 mg PO DAILY Atorvastatin Calcium [Lipitor] 80 mg PO QPM Ondansetron HCl [Zofran] 4 mg PO QID PRN PRN Reason: NAUSEA/VOMITING hydrOXYzine HCl [Hydroxyzine HCl] 25 mg PO BID PRN PRN Reason: Anxiety Diphenoxylate/Atropine [Lomotil 2.5 mg/0.025 mg] 1 tab PO QID PRN PRN Reason: Diarrhea Raloxifene [Evista] 60 mg PO DAILY GlipiZIDE XL (24 HR) [Glucotrol XL] 10 mg PO DAILY Aspirin [Lo-Dose Aspirin EC] 81 mg PO DAILY Home Medications: Aspirin [Lo-Dose Aspirin EC] 81 mg PO DAILY 04/14/19 [History] Atorvastatin Calcium [Lipitor] 80 mg PO QPM 04/14/19 [History] Diphenoxylate/Atropine [Lomotil 2.5 mg/0.025 mg] 1 tab PO QID PRN 04/14/19 [History] GlipiZIDE XL (24 HR) [Glucotrol XL] 10 mg PO DAILY 04/14/19 [History] Lisinopril [Zestril] 20 mg PO DAILY 04/14/19 [History] Nitroglycerin [Nitrostat] 0.4 mg SL Q5MIN PRN MDD X3 DOSES 04/14/19 [History] Ondansetron HCl [Zofran] 4 mg PO QID PRN 04/14/19 [History] Raloxifene [Evista] 60 mg PO DAILY 04/14/19 [History] Sitagliptin Phos/Metformin HCl [Janumet 50-1,000 mg Tablet] 1 tab PO BIDWM 04/14/19 [History] hydrOXYzine HCl [Hydroxyzine HCl] 25 mg PO BID PRN 04/14/19 [History] raNITIdine HCl [Zantac] 150 mg PO BID 04/14/19 [History] Pantoprazole Sodium [Protonix] 40 mg PO DAILY 15 Days #15 tablet. 04/15/19 [Rx] Simethicone [Phazyme] 250 mg PO BIDWM 15 Days #30 capsule 04/15/19 [Rx] Allergies/Adverse Reactions: Allergy/AdvReac Type Severity Reaction Status Date / Time rosuvastatin [From Crestor] Allergy Cramping Verified 04/14/19 14:22 of the Muscles Sulfa (Sulfonamide Allergy Hives Verified 04/14/19 14:22 Antibiotics) TAPE AdvReac Hives Uncoded 04/14/19 14:22 Date of admission: 04/13/19 20:46 Primary care physician: Brenna Armstrong CNP Consults: 04/13/19 21:11 Consult to Gastroenterology [CONS] Routine Consulting Provider: Gastroenterology Renu Reason for Consult: New onset diagnosis of liver cirrhosis with anemia requiring blood transfusion Call Completed: No 04/14/19 09:23 Consult to Gastroenterology [CONS] Stat Consulting Provider: Gastroenterology Renu Reason for Consult: Gastroesophageal varices with anemia Call Completed: Yes Discharging clinician: Anton Wilson - Constitutional Vitals: Temp Pulse Resp BP Pulse Ox 99.1 F 84 16 112/55 99 04/15/19 10:22 04/15/19 10:22 04/15/19 10:22 04/15/19 10:22 04/15/19 08:53 General appearance: Present: cooperative, A&O X 3 Exam: General: A & O 3, In no acute distress HENNT: PERRLA. Head atraumatic and makes supple CVS S1 and S2 regular, no murmur RS: Clear to air entry bilaterally, no wheeze, no crackles Abdomen: Soft and nontender. Distended. Bowel sounds 4. No rebound tenderness and guarding Extremities: No cyanosis, clubbing, and edema Neurology: Cranial II-XII ormal. Motor strength 5/5 bilaterally. Sensation intact - Patient Status Disposition: Home, Self-Care Condition: Good Functional capacity at discharge: independent ambulation Overall status at discharge: patient is progressing back to baseline - Discharge Instructions Instructions: Colonoscopy (DC), Cirrhosis (DC), Upper Gastrointestinal Endoscopy (DC), Anemia (GEN) Follow Up With: Kavon Newsome MD [Partnered Physician] - Brenna Armstrong CNP [Primary Care Provider] - - Diet and Activity Activity: increase activity as tolerated Diet: diabetic diet, low salt diet - VTE Documentation of Mechanical Device: Graduated compression elastic hosiery
[2019-04-17 09:43] LABS: ANA IgG by ELISA NONE DETECTED (None Detected); Immunoglobulin A (CELIAC) 75 mg/dL (68-408); Smooth Muscle Ab Titer IgG <1:20 (<1:20)
[2019-04-17 09:49] LABS: Tissue Transglutaminase IgA 0 U/mL (0-3)
== END 2019-04-15 15:33 | disposition home or self-care (01) ==
LOC: 2ANU 18:10 → EMEROOARM 18:10 → SUATTDRO 20:46 → 2ANU 20:52
PROVIDERS: ADMIT Internal Medicine; ATTEND Family Medicine
PROC: ENDOCCB (2019-04-15 08:00)

== ENCOUNTER 2020-11-06 17:25 | Observation (INO) ==
[2020-11-06] MEDS ORDERED: Isovue-370 500 ML BOTTLE IVP ONE (17:51)
[2020-11-06 18:22] LABS: Basophils % 0.4 %; Hemoglobin 10.8 g/dL (11.5-15.4); Immature Granulocytes % 0.2 % (0-4); Red Cell Distribution Width 16.7 % (11.5-14.5)
[2020-11-06] MEDS ORDERED: 0.9 % Sodium Chloride 1,000 ML IVC ONE (18:23)
[2020-11-06 18:24] LABS: Eosinophils % 0.2 %; Hematocrit 34.3 % (35.3-44.9); Immature Platelets 9.6 % (1.1-6.1); Lymphocytes # 1.2 K/mcL (0.6-4.6); Lymphocytes % 24.3 %; Mean Corpuscular HGB Conc 31.5 g/dL (31.6-35.5); Mean Corpuscular Hemoglobin 28.1 pg (28.0-33.3); Mean Corpuscular Volume 89.3 fL (83.0-100.0); Monocytes # 0.3 K/mcL (0.0-1.3); Monocytes % 6.8 %; Neutrophils # 3.4 K/mcL (1.6-8.9); Red Blood Count 3.84 M/mcL (3.82-4.97); Segmented Neutrophils % 68.1 %
[2020-11-06 18:27] LABS: Platelet Count 88 K/mcL (140-400)
[2020-11-06 18:29] LABS: INR 1.4; Prothrombin Time 15.9 Seconds (9.4-12.1)
[2020-11-06 18:41] LABS: Albumin 3.2 g/dL (3.5-5.7); Albumin/Globulin Ratio 1.3 (1.1-2.2); Calcium 9.1 mg/dL (8.6-10.3); Globulin 2.4 g/dL (2.4-3.5); Potassium 4.3 mEq/L (3.5-5.1); Total Protein 5.6 g/dL (6.4-8.9)
[2020-11-06 19:04] LABS: Bilirubin,Urine Negative (Negative); Blood,Urine Large (Negative); Clarity,Urine Clear (Clear); Color,Urine Yellow (Yellow); Glucose,Urine (UA) Normal (Normal); Hyaline Casts,Urine Few per lpf (None Seen); Ketones,Urine Negative (Negative); Leukocyte Esterase,Urine Negative (Negative); Mucus,Urine Few per lpf (None-Few); Nitrite,Urine Negative (Negative); PH,Urine 5.5 pH Units (5.0-8.0); Protein,Urine Trace mg/dL (Neg-Trace); RBC,Urine 0-3 per hpf (0-3); Specific Gravity,Urine 1.017 (1.010-1.025); Squamous Epithelial Cell,Urine Few per hpf (None-Few); Urobilinogen,Urine Normal (Normal); WBC,Urine 0-3 per hpf (0-3)
[2020-11-06] MEDS ORDERED: Naloxone 0.4 MG/ML INJ IVP PRN (21:10)
[2020-11-06] MEDS ORDERED: Ondansetron 4 MG/2 ML VIAL IVP PRN (21:10)
[2020-11-06] MEDS ORDERED: Dextrose Gel 15 GM/37.5 ML TUBE PO PRN ×2 (21:17)
[2020-11-06] MEDS ORDERED: D5% in Water 1,000 ML IVC PRN (21:17)
[2020-11-06] MEDS ORDERED: *HR* Dextrose 50 % in Water (Vial) 50 ML VIAL IVP PRN (21:17)
[2020-11-06] MEDS: *HR* Heparin 5,000 UNIT/ML VIAL SQ SCH (22:29)
[2020-11-06] MEDS: Insulin LISPRO 300 UNITS/3 ML VIAL SUBQ SCH (22:31)
[2020-11-06] MEDS: Pantoprazole 40 MG VIAL IVP SCH (22:40)
[2020-11-07 00:22] LABS: Basophils % 0.3 %; Red Cell Distribution Width 16.5 % (11.5-14.5)
[2020-11-07 00:24] LABS: Hematocrit 33.1 % (35.3-44.9); Hemoglobin 10.3 g/dL (11.5-15.4); Immature Granulocytes % 0.3 % (0-4); Immature Platelets 7.5 % (1.1-6.1); Lymphocytes % 30.9 %; Mean Corpuscular HGB Conc 31.1 g/dL (31.6-35.5); Mean Corpuscular Hemoglobin 28.4 pg (28.0-33.3); Mean Corpuscular Volume 91.2 fL (83.0-100.0); Mean Platelet Volume 12.6 fL (9.4-12.4); Monocytes # 0.2 K/mcL (0.0-1.3); Monocytes % 5.8 %; Neutrophils # 2.1 K/mcL (1.6-8.9); Red Blood Count 3.63 M/mcL (3.82-4.97); Segmented Neutrophils % 62.7 %; White Blood Count 3.3 K/mcL (4.3-11.1)
[2020-11-07 00:25] LABS: Platelet Count 68 K/mcL (140-400)
[2020-11-07 00:32] LABS: INR 1.4; Prothrombin Time 15.9 Seconds (9.4-12.1)
[2020-11-07 00:38] LABS: BUN/Creatinine Ratio 15 (6-26); Blood Urea Nitrogen 16 mg/dL (8-23); Calcium 8.6 mg/dL (8.6-10.3); Carbon Dioxide 25 mEq/L (23-29); Chloride 109 mEq/L (98-107); Glucose 82 mg/dL (70-105); Osmolality,Calculated 292 (280-300); Potassium 3.8 mEq/L (3.5-5.1); Sodium 141 mEq/L (136-145); eGFR For African Americans > 60 (> 60); eGFR For Non-African Americans 52 (> 60)
[2020-11-07] MEDS: *HR* Heparin 5,000 UNIT/ML VIAL SQ SCH (02:43)
[2020-11-07] MEDS: Insulin LISPRO 300 UNITS/3 ML VIAL SUBQ SCH ×3 (07:52→17:55)
[2020-11-07] MEDS ORDERED: Aspirin Enteric Coated 81 MG Tablet PO SCH (09:00)
[2020-11-07] MEDS: Pantoprazole 40 MG VIAL IVP SCH (10:49)
[2020-11-07] MEDS ORDERED: cefTRIAXone 1,000 MG in Water for inj. (sterile) 10 ML IVP SCH (12:00)
[2020-11-07] MEDS: Albumin 25% 25gram/100mL 25 GM/100 ML IV.SOLN IVC SCH ×2 (15:00→17:00)
[2020-11-07 15:12] VITALS: BP 124/73
[2020-11-07 15:21] LABS: Source of Body Fluid ascites
[2020-11-07 16:57] LABS: Appearance of Body Fluid Clear (Clear); Volume of Body Fluid 60 mL
[2020-11-10 10:52] LABS: Fluid Source for Albumin PERITONEAL FL.
== END 2020-11-07 19:32 | disposition home or self-care (01) ==
LOC: 3ANU 17:25 → EMEROOARM 17:25 → SUATTDRO 20:41 → 3ANU 21:57
PROVIDERS: ADMIT Student in an Organized Health Care Education/Training Program; ATTEND Student in an Organized Health Care Education/Training Program

== ENCOUNTER 2020-11-14 21:50 | Inpatient (IN) ==
[2020-11-14] MEDS ORDERED: Albuterol 2.5 MG/3 ML NEBULIZER IH ONE (22:15)
[2020-11-14] MEDS ORDERED: Insulin Human Regular 10 UNIT in 0.9 % Sodium Chloride 10 ML IV ONE (22:15)
[2020-11-14] MEDS ORDERED: Calcium Gluconate 1gm/50mL 1 GM/50 ML BAG IVPB STA ×2 (22:15→22:36)
[2020-11-14] MEDS ORDERED: Calcium Gluconate 1,000 MG/10 ML VIAL IVP ONE (22:16)
[2020-11-14 22:29] LABS: Basophils % 0.4 %; Eosinophils # 0.2 K/mcL (0.0-0.6); Eosinophils % 2.9 %; Hematocrit 39.8 % (35.3-44.9); Hemoglobin 11.8 g/dL (11.5-15.4); Immature Granulocytes % 0.4 % (0-4); Mean Corpuscular HGB Conc 29.6 g/dL (31.6-35.5); Mean Corpuscular Hemoglobin 27.6 pg (28.0-33.3); Mean Corpuscular Volume 93.2 fL (83.0-100.0); Mean Platelet Volume 12.1 fL (9.4-12.4); Monocytes # 0.6 K/mcL (0.0-1.3); Monocytes % 7.1 %; Neutrophils # 5.1 K/mcL (1.6-8.9); Platelet Count 130 K/mcL (140-400); Red Blood Count 4.27 M/mcL (3.82-4.97); Red Cell Distribution Width 16.7 % (11.5-14.5); Segmented Neutrophils % 64.2 %
[2020-11-14] MEDS ORDERED: *HR* Dextrose 50 % in Water (Vial) 50 ML VIAL IVP ONE (22:30)
[2020-11-14] MEDS ORDERED: Calcium Gluconate 1gm/50mL 1 GM/50 ML BAG IVPB ONE ×2 (22:30→23:05)
[2020-11-14 22:46] LABS: Calcium 9.3 mg/dL (8.6-10.3); Magnesium 1.9 mg/dL (1.6-2.6); Phosphorous 2.2 mg/dL (2.7-4.5); Potassium 6.6 mEq/L (3.5-5.1)
[2020-11-14] MEDS ORDERED: Ondansetron 4 MG/2 ML VIAL IVP STA (22:54)
[2020-11-15 01:00] LABS: Bacteria,Urine Few per hpf (None-Few); Bilirubin,Urine Negative (Negative); Blood,Urine Large (Negative); Clarity,Urine Turbid (Clear); Color,Urine Yellow (Yellow); Glucose,Urine (UA) Normal (Normal); Hyaline Casts,Urine Many per lpf (None Seen); Ketones,Urine Negative (Negative); Leukocyte Esterase,Urine Small (Negative); Mucus,Urine Few per lpf (None-Few); Nitrite,Urine Negative (Negative); PH,Urine 5.5 pH Units (5.0-8.0); Protein,Urine 100 mg/dL (Neg-Trace); RBC,Urine TNTC per hpf (0-3); Specific Gravity,Urine 1.021 (1.010-1.025); Squamous Epithelial Cell,Urine Moderate per hpf (None-Few); Urobilinogen,Urine Normal (Normal); WBC,Urine 50-100 per hpf (0-3)
[2020-11-15] MEDS ORDERED: 0.9 % Sodium Chloride 1,000 ML IVC ONE ×2 (01:10→04:10)
[2020-11-15 01:20] LABS: INR 1.3; Prothrombin Time 15.3 Seconds (9.4-12.1)
[2020-11-15 03:29] LABS: Calcium 9.5 mg/dL (8.6-10.3); Potassium 5.8 mEq/L (3.5-5.1)
[2020-11-15] MEDS ORDERED: Melatonin 3 MG TABLET PO PRN (04:08)
[2020-11-15] MEDS ORDERED: Naloxone 0.4 MG/ML INJ IVP PRN (04:08)
[2020-11-15] MEDS ORDERED: Ondansetron 4 MG/2 ML VIAL IVP PRN (04:08)
[2020-11-15] MEDS ORDERED: Calcium Gluconate 1gm/50mL 1 GM/50 ML BAG IVPB ONE (04:10)
[2020-11-15] MEDS ORDERED: *HR* Dextrose 50 % in Water (Vial) 50 ML VIAL IVP PRN (04:15)
[2020-11-15] MEDS ORDERED: Dextrose Gel 15 GM/37.5 ML TUBE PO PRN ×2 (04:15)
[2020-11-15] MEDS ORDERED: D5% in Water 1,000 ML IVC PRN (04:15)
[2020-11-15] MEDS ORDERED: Albuterol 2.5 MG/3 ML NEBULIZER IH ONE (04:17)
[2020-11-15] MEDS ORDERED: Insulin LISPRO 300 UNITS/3 ML VIAL SUBQ ONE (04:30)
[2020-11-15 07:57] LABS: Hematocrit 37.3 % (35.3-44.9); Immature Platelets 9.6 % (1.1-6.1); Mean Corpuscular HGB Conc 29.5 g/dL (31.6-35.5); Mean Corpuscular Hemoglobin 27.5 pg (28.0-33.3); Mean Corpuscular Volume 93.3 fL (83.0-100.0); Mean Platelet Volume 12.6 fL (9.4-12.4); Red Cell Distribution Width 16.8 % (11.5-14.5); White Blood Count 7.5 K/mcL (4.3-11.1)
[2020-11-15 08:15] LABS: Phosphorous 2.5 mg/dL (2.7-4.5)
[2020-11-15] MEDS ORDERED: cefTRIAXone 1,000 MG in Water for inj. (sterile) 10 ML IVP SCH (09:00)
[2020-11-15 09:27] LABS: Calcium 9.2 mg/dL (8.6-10.3); Potassium 6.7 mEq/L (3.5-5.1)
[2020-11-15] MEDS ORDERED: SODIUM ZIRCONIUM CYCLOSILICATE 5 GM POWD.PACK PO ONE (12:12)
[2020-11-15] MEDS: Sodium Bicarbonate 150 MEQ in D5% in Water 1,000 ML IVC SCH (16:43)
[2020-11-15] MEDS: *HR* Heparin 5,000 UNIT/ML VIAL SQ SCH (16:43)
[2020-11-16 02:07] LABS: Uric Acid 9.7 mg/dL (2.3-7.6)
[2020-11-16 02:58] LABS: Hepatitis B Surface Antigen Nonreactive (Nonreactive)
[2020-11-16 03:27] LABS: Hepatitis B Core IgM Nonreactive (Nonreactive)
[2020-11-16 03:28] LABS: Hepatitis A Antibody IgM Nonreactive (Nonreactive); Hepatitis C Virus Antibody Nonreactive (Nonreactive)
[2020-11-16] MEDS: *HR* Heparin 5,000 UNIT/ML VIAL SQ SCH ×2 (05:36→17:02)
[2020-11-16] MEDS: Sodium Bicarbonate 150 MEQ in D5% in Water 1,000 ML IVC SCH ×2 (05:37→17:02)
[2020-11-16] MEDS ORDERED: Nitroglycerin 0.4 MG TAB.SUBL SL PRN (07:37)
[2020-11-16] MEDS ORDERED: hydrOXYzine pamoate 25 MG CAPSULE PO PRN (08:12)
[2020-11-16 09:08] LABS: Red Cell Distribution Width 16.5 % (11.5-14.5)
[2020-11-16 09:10] LABS: Basophils % 0.4 %; Eosinophils # 0.1 K/mcL (0.0-0.6); Hematocrit 32.5 % (35.3-44.9); Immature Granulocytes % 0.4 % (0-4); Immature Platelets 8.1 % (1.1-6.1); Lymphocytes # 1.6 K/mcL (0.6-4.6); Lymphocytes % 31.5 %; Mean Corpuscular HGB Conc 30.8 g/dL (31.6-35.5); Mean Corpuscular Hemoglobin 27.6 pg (28.0-33.3); Mean Corpuscular Volume 89.8 fL (83.0-100.0); Mean Platelet Volume 13.4 fL (9.4-12.4); Monocytes # 0.4 K/mcL (0.0-1.3); Monocytes % 8.8 %; Neutrophils # 2.9 K/mcL (1.6-8.9); Red Blood Count 3.62 M/mcL (3.82-4.97); Segmented Neutrophils % 57.9 %
[2020-11-16 09:13] LABS: Platelet Count 76 K/mcL (140-400)
[2020-11-16 09:30] LABS: Calcium 8.5 mg/dL (8.6-10.3); Potassium 4.6 mEq/L (3.5-5.1)
[2020-11-16] MEDS: Aspirin Enteric Coated 81 MG Tablet PO SCH (09:43)
[2020-11-16 10:09] LABS: Bacteria,Urine Few per hpf (None-Few); Bilirubin,Urine Small (Negative); Blood,Urine Moderate (Negative); Clarity,Urine Turbid (Clear); Color,Urine Yellow (Yellow); Glucose,Urine (UA) Normal (Normal); Hyaline Casts,Urine Many per lpf (None Seen); Ketones,Urine Negative (Negative); Leukocyte Esterase,Urine Small (Negative); Mucus,Urine Few per lpf (None-Few); Nitrite,Urine Negative (Negative); PH,Urine 5.5 pH Units (5.0-8.0); Protein,Urine 100 mg/dL (Neg-Trace); RBC,Urine 50-100 per hpf (0-3); Squamous Epithelial Cell,Urine Moderate per hpf (None-Few); Urobilinogen,Urine Normal (Normal); WBC,Urine 30-50 per hpf (0-3)
[2020-11-16 10:33] LABS: Protein/Creatinine Ratio,Urine 0.31 mg/mg (0.00-0.20); Sodium, Urine 27.4 mEq/L
[2020-11-17 03:46] LABS: Basophils % 0.4 %; Eosinophils % 0.2 %; Hematocrit 29.9 % (35.3-44.9); Hemoglobin 9.3 g/dL (11.5-15.4); Immature Granulocytes % 0.2 % (0-4); Immature Platelets 7.8 % (1.1-6.1); Lymphocytes # 1.7 K/mcL (0.6-4.6); Lymphocytes % 34.8 %; Mean Corpuscular HGB Conc 31.1 g/dL (31.6-35.5); Mean Corpuscular Hemoglobin 27.8 pg (28.0-33.3); Mean Corpuscular Volume 89.5 fL (83.0-100.0); Mean Platelet Volume 13.3 fL (9.4-12.4); Monocytes # 0.5 K/mcL (0.0-1.3); Neutrophils # 2.7 K/mcL (1.6-8.9); Platelet Count 65 K/mcL (140-400); Red Blood Count 3.34 M/mcL (3.82-4.97); Red Cell Distribution Width 16.5 % (11.5-14.5); Segmented Neutrophils % 54.4 %; White Blood Count 4.9 K/mcL (4.3-11.1)
[2020-11-17 04:00] LABS: Calcium 7.8 mg/dL (8.6-10.3); Potassium 4.1 mEq/L (3.5-5.1)
[2020-11-17 04:01] LABS: Albumin 2.7 g/dL (3.5-5.7); Albumin/Globulin Ratio 1.6 (1.1-2.2); Bilirubin,Direct 0.4 mg/dL (0.0-0.2); Bilirubin,Indirect 0.6 mg/dL (0.0-1.0); Globulin 1.7 g/dL (2.4-3.5); Total Protein 4.4 g/dL (6.4-8.9)
[2020-11-17] MEDS: *HR* Heparin 5,000 UNIT/ML VIAL SQ SCH (05:49)
[2020-11-17] MEDS: Aspirin Enteric Coated 81 MG Tablet PO SCH (09:00)
[2020-11-17] MEDS: Albumin 25% 25gram/100mL 25 GM/100 ML IV.SOLN IVC SCH ×2 (09:00→11:41)
[2020-11-17] MEDS ORDERED: D5% in Water 1,000 ML IVC PRN (09:02)
[2020-11-17] MEDS: Sodium Bicarbonate 150 MEQ in D5% in Water 1,000 ML IVC SCH (13:32)
[2020-11-18 01:59] LABS: Eosinophils % 0.4 %; Immature Granulocytes % 0.2 % (0-4); Mean Platelet Volume 12.8 fL (9.4-12.4); Red Cell Distribution Width 16.3 % (11.5-14.5)
[2020-11-18 02:01] LABS: Basophils % 0.2 %; Hematocrit 30.7 % (35.3-44.9); Hemoglobin 9.7 g/dL (11.5-15.4); Immature Platelets 9.7 % (1.1-6.1); Lymphocytes % 19.3 %; Mean Corpuscular HGB Conc 31.6 g/dL (31.6-35.5); Mean Corpuscular Volume 88.7 fL (83.0-100.0); Monocytes # 0.5 K/mcL (0.0-1.3); Monocytes % 9.4 %; Red Blood Count 3.46 M/mcL (3.82-4.97); Segmented Neutrophils % 70.5 %; White Blood Count 4.9 K/mcL (4.3-11.1)
[2020-11-18 02:03] LABS: Neutrophils # 3.5 K/mcL (1.6-8.9); Platelet Count 57 K/mcL (140-400)
[2020-11-18 02:19] LABS: Calcium 7.8 mg/dL (8.6-10.3); Potassium 4.3 mEq/L (3.5-5.1)
[2020-11-18] MEDS ORDERED: 0.9 % Sodium Chloride 1,000 ML IVC SCH ×2 (05:00→15:00)
[2020-11-18] MEDS: Albumin 25% 25gram/100mL 25 GM/100 ML IV.SOLN IVC SCH ×2 (10:03→12:03)
[2020-11-18] MEDS: Aspirin Enteric Coated 81 MG Tablet PO SCH (10:05)
[2020-11-19 01:59] LABS: Calcium 7.8 mg/dL (8.6-10.3); Potassium 3.6 mEq/L (3.5-5.1)
[2020-11-19] MEDS: Aspirin Enteric Coated 81 MG Tablet PO SCH (07:40)
[2020-11-19] MEDS: Simethicone 80 MG TAB.CHEW PO PRN (07:43)
[2020-11-20 03:32] LABS: Immature Granulocytes % 0.2 % (0-4)
[2020-11-20 03:34] LABS: Basophils % 0.4 %; Eosinophils % 0.8 %; Hematocrit 32.4 % (35.3-44.9); Hemoglobin 9.9 g/dL (11.5-15.4); Immature Platelets 7.4 % (1.1-6.1); Lymphocytes # 1.2 K/mcL (0.6-4.6); Lymphocytes % 23.7 %; Mean Corpuscular HGB Conc 30.6 g/dL (31.6-35.5); Mean Corpuscular Hemoglobin 27.5 pg (28.0-33.3); Mean Platelet Volume 13.1 fL (9.4-12.4); Monocytes # 0.4 K/mcL (0.0-1.3); Monocytes % 8.2 %; Red Cell Distribution Width 16.5 % (11.5-14.5); Segmented Neutrophils % 66.7 %
[2020-11-20 03:35] LABS: Neutrophils # 3.3 K/mcL (1.6-8.9); Platelet Count 49 K/mcL (140-400)
[2020-11-20 03:50] LABS: Calcium 8.1 mg/dL (8.6-10.3); Potassium 3.6 mEq/L (3.5-5.1)
[2020-11-20] MEDS: Aspirin Enteric Coated 81 MG Tablet PO SCH (07:40)
[2020-11-20] MEDS ORDERED: *HR* OxyCODONE Immed Rel 5 MG TABLET PO ONE (08:22)
[2020-11-20] MEDS: Sodium Bicarbonate 150 MEQ in D5% in Water 1,000 ML IVC SCH (18:34)
[2020-11-21] MEDS: Simethicone 80 MG TAB.CHEW PO PRN (01:48)
[2020-11-21 07:15] LABS: Immature Granulocytes % 0.2 % (0-4); Red Cell Distribution Width 16.5 % (11.5-14.5)
[2020-11-21 07:17] LABS: Basophils % 0.5 %; Eosinophils % 0.2 %; Hematocrit 29.7 % (35.3-44.9); Hemoglobin 9.5 g/dL (11.5-15.4); Lymphocytes # 1.1 K/mcL (0.6-4.6); Lymphocytes % 25.6 %; Mean Corpuscular Hemoglobin 28.6 pg (28.0-33.3); Mean Corpuscular Volume 89.5 fL (83.0-100.0); Mean Platelet Volume 12.8 fL (9.4-12.4); Monocytes # 0.4 K/mcL (0.0-1.3); Monocytes % 8.8 %; Neutrophils # 2.7 K/mcL (1.6-8.9); Red Blood Count 3.32 M/mcL (3.82-4.97); Segmented Neutrophils % 64.7 %; White Blood Count 4.2 K/mcL (4.3-11.1)
[2020-11-21 07:19] LABS: Platelet Count 47 K/mcL (140-400)
[2020-11-21] MEDS: Aspirin Enteric Coated 81 MG Tablet PO SCH (07:49)
[2020-11-21 08:01] LABS: Calcium 7.9 mg/dL (8.6-10.3); Potassium 3.6 mEq/L (3.5-5.1)
[2020-11-21 10:49] VITALS: BP 144/83
[2020-11-21 15:38] LABS: Adenovirus Not Detected (Not Detect); Bordetella Pertussis Not Detected (Not Detect); Chlamydophila pneumoniae Not Detected (Not Detect); Coronavirus 229E Not Detected (Not Detect); Coronavirus HKU1 Not Detected (Not Detect); Coronavirus NL63 Not Detected (Not Detect); Coronavirus OC43 Not Detected (Not Detect); Human Metapneumovirus Not Detected (Not Detect); Human Rhinovirus/Enterovirus Not Detected (Not Detect); Influenza A Subtype 2009 H1 Not Detected (Not Detect); Influenza B Not Detected (Not Detect); Mycoplasma pneumoniae Not Detected (Not Detect); Parainfluenza Virus 1 Not Detected (Not Detect); Parainfluenza Virus 2 Not Detected (Not Detect); Parainfluenza Virus 3 Not Detected (Not Detect); Parainfluenza Virus 4 Not Detected (Not Detect); Respiratory Syncytial Virus Not Detected (Not Detect); SARS-CoV-2 Not Detected (Not Detect)
== END 2020-11-21 18:40 | DRG 433 ==
LOC: 2ANU 21:50 → EMEROOARM 21:50 → 2ANU 11-15 02:23 → SUATTDRO 11-15 10:32
PROVIDERS: ADMIT Internal Medicine; ATTEND Family Medicine

== ENCOUNTER 2020-12-26 17:19 | Inpatient (IN) ==
[2020-12-26 18:46] LABS: Basophils % 0.1 %; Hematocrit 35.8 % (35.3-44.9); Hemoglobin 11.4 g/dL (11.5-15.4); Immature Granulocytes % 0.3 % (0-4); Lymphocytes # 1.5 K/mcL (0.6-4.6); Lymphocytes % 14.4 %; Mean Corpuscular HGB Conc 31.8 g/dL (31.6-35.5); Mean Corpuscular Hemoglobin 27.5 pg (28.0-33.3); Mean Corpuscular Volume 86.5 fL (83.0-100.0); Mean Platelet Volume 11.2 fL (9.4-12.4); Monocytes # 1.2 K/mcL (0.0-1.3); Monocytes % 11.5 %; Neutrophils # 7.5 K/mcL (1.6-8.9); Platelet Count 204 K/mcL (140-400); Red Blood Count 4.14 M/mcL (3.82-4.97); Red Cell Distribution Width 17.4 % (11.5-14.5); Segmented Neutrophils % 73.7 %; White Blood Count 10.2 K/mcL (4.3-11.1)
[2020-12-26 18:53] LABS: INR 1.5; Prothrombin Time 16.6 Seconds (9.4-12.1)
[2020-12-26 18:56] LABS: Activated Partial Thrombo Time 28.8 Seconds (26.0-36.0)
[2020-12-26 19:07] LABS: Alanine Aminotransferase 19 Units/L (7-52); Albumin 3.1 g/dL (3.5-5.7); Albumin/Globulin Ratio 1.1 (1.1-2.2); Alkaline Phosphatase 123 Units/L (34-104); Aspartate Amino Transferase 50 Units/L (13-39); BUN/Creatinine Ratio 17 (6-26); Bilirubin,Direct 1.4 mg/dL (0.0-0.2); Bilirubin,Total 3.4 mg/dL (0.3-1.0); Blood Urea Nitrogen 20 mg/dL (8-23); Calcium 8.5 mg/dL (8.6-10.3); Carbon Dioxide 32 mEq/L (23-29); Chloride 91 mEq/L (98-107); Globulin 2.7 g/dL (2.4-3.5); Glucose 131 mg/dL (70-105); Lipase 151 Units/L (11-82); Magnesium 2.4 mg/dL (1.6-2.6); Osmolality,Calculated 274 (280-300); Potassium 3.7 mEq/L (3.5-5.1); Sodium 130 mEq/L (136-145); Total Protein 5.8 g/dL (6.4-8.9); Troponin I < 0.03 ng/mL (< 0.04); eGFR For African Americans 54 (> 60); eGFR For Non-African Americans 44 (> 60)
[2020-12-26] MEDS ORDERED: Isovue-370 500 ML BOTTLE IVP ONE (19:27)
[2020-12-26] MEDS ORDERED: 0.9 % Sodium Chloride 1,000 ML IVC ONE (19:27)
[2020-12-26] MEDS ORDERED: Ondansetron 4 MG/2 ML VIAL IVP ONE (19:27)
[2020-12-26 21:36] LABS: Bacteria,Urine Few per hpf (None-Few); Bilirubin,Urine Negative (Negative); Blood,Urine Negative (Negative); Clarity,Urine Turbid (Clear); Color,Urine Yellow (Yellow); Glucose,Urine (UA) Normal (Normal); Hyaline Casts,Urine Few per lpf (None Seen); Ketones,Urine Negative (Negative); Leukocyte Esterase,Urine Negative (Negative); Mucus,Urine Few per lpf (None-Few); Nitrite,Urine Negative (Negative); PH,Urine 5.5 pH Units (5.0-8.0); Protein,Urine 70 mg/dL (Neg-Trace); Specific Gravity,Urine 1.026 (1.010-1.025); Squamous Epithelial Cell,Urine Few per hpf (None-Few); WBC,Urine 15-30 per hpf (0-3)
[2020-12-26 22:04] LABS: Adenovirus Not Detected (Not Detect); Bordetella Pertussis Not Detected (Not Detect); Chlamydophila pneumoniae Not Detected (Not Detect); Coronavirus 229E Not Detected (Not Detect); Coronavirus HKU1 Not Detected (Not Detect); Coronavirus NL63 Not Detected (Not Detect); Coronavirus OC43 Not Detected (Not Detect); Human Metapneumovirus Not Detected (Not Detect); Human Rhinovirus/Enterovirus Not Detected (Not Detect); Influenza A Subtype 2009 H1 Not Detected (Not Detect); Influenza B Not Detected (Not Detect); Mycoplasma pneumoniae Not Detected (Not Detect); Parainfluenza Virus 1 Not Detected (Not Detect); Parainfluenza Virus 2 Not Detected (Not Detect); Parainfluenza Virus 3 Not Detected (Not Detect); Parainfluenza Virus 4 Not Detected (Not Detect); Respiratory Syncytial Virus Not Detected (Not Detect); SARS-CoV-2 Not Detected (Not Detect)
[2020-12-27] MEDS ORDERED: Naloxone 0.4 MG/ML INJ IVP PRN (00:04)
[2020-12-27 01:56] LABS: Basophils % 0.1 %; Hematocrit 33.7 % (35.3-44.9); Hemoglobin 10.9 g/dL (11.5-15.4); Immature Granulocytes % 0.2 % (0-4); Lymphocytes # 1.5 K/mcL (0.6-4.6); Lymphocytes % 14.7 %; Mean Corpuscular HGB Conc 32.3 g/dL (31.6-35.5); Mean Corpuscular Hemoglobin 27.9 pg (28.0-33.3); Mean Corpuscular Volume 86.2 fL (83.0-100.0); Mean Platelet Volume 10.6 fL (9.4-12.4); Monocytes # 0.7 K/mcL (0.0-1.3); Monocytes % 7.2 %; Platelet Count 175 K/mcL (140-400); Red Blood Count 3.91 M/mcL (3.82-4.97); Red Cell Distribution Width 17.7 % (11.5-14.5); Segmented Neutrophils % 77.8 %; White Blood Count 10.3 K/mcL (4.3-11.1)
[2020-12-27 02:18] LABS: BUN/Creatinine Ratio 20 (6-26); Blood Urea Nitrogen 21 mg/dL (8-23); Calcium 8.2 mg/dL (8.6-10.3); Carbon Dioxide 29 mEq/L (23-29); Chloride 95 mEq/L (98-107); Glucose 127 mg/dL (70-105); Osmolality,Calculated 279 (280-300); Potassium 3.7 mEq/L (3.5-5.1); Sodium 132 mEq/L (136-145); eGFR For African Americans > 60 (> 60); eGFR For Non-African Americans 51 (> 60)
[2020-12-27 02:19] LABS: Alanine Aminotransferase 17 Units/L (7-52); Albumin/Globulin Ratio 1.2 (1.1-2.2); Alkaline Phosphatase 110 Units/L (34-104); Aspartate Amino Transferase 46 Units/L (13-39); BUN/Creatinine Ratio 20 (6-26); Bilirubin,Total 3.4 mg/dL (0.3-1.0); Blood Urea Nitrogen 21 mg/dL (8-23); Calcium 8.2 mg/dL (8.6-10.3); Carbon Dioxide 29 mEq/L (23-29); Chloride 95 mEq/L (98-107); Globulin 2.5 g/dL (2.4-3.5); Glucose 127 mg/dL (70-105); Osmolality,Calculated 279 (280-300); Potassium 3.7 mEq/L (3.5-5.1); Sodium 132 mEq/L (136-145); Total Protein 5.5 g/dL (6.4-8.9); eGFR For African Americans > 60 (> 60); eGFR For Non-African Americans 52 (> 60)
[2020-12-27] MEDS: Ondansetron 4 MG/2 ML VIAL IVP PRN ×2 (11:39→19:38)
[2020-12-27 16:02] LABS: Source of Body Fluid Ascitic fluid
[2020-12-27 16:34] LABS: Appearance of Body Fluid Slightly Hazy (Clear); Volume of Body Fluid 2200 mL
[2020-12-27] MEDS ORDERED: Albumin 25% 25gram/100mL 25 GM/100 ML IV.SOLN IVPB ONE (18:24)
[2020-12-28] MEDS: Furosemide 40 MG TABLET PO SCH (08:28)
[2020-12-28] MEDS: Aspirin Enteric Coated 81 MG Tablet PO SCH (08:28)
[2020-12-28] MEDS ORDERED: Sennosides/Docusate Sodium TABLET PO PRN (12:55)
[2020-12-29 06:08] LABS: Basophils % 0.1 %; Eosinophils # 0.3 K/mcL (0.0-0.6); Eosinophils % 2.9 %; Hematocrit 34.1 % (35.3-44.9); Hemoglobin 10.6 g/dL (11.5-15.4); Immature Granulocytes % 0.3 % (0-4); Lymphocytes # 1.7 K/mcL (0.6-4.6); Lymphocytes % 19.4 %; Mean Corpuscular HGB Conc 31.1 g/dL (31.6-35.5); Mean Corpuscular Hemoglobin 27.2 pg (28.0-33.3); Mean Corpuscular Volume 87.7 fL (83.0-100.0); Monocytes # 0.6 K/mcL (0.0-1.3); Monocytes % 6.4 %; Neutrophils # 6.1 K/mcL (1.6-8.9); Platelet Count 147 K/mcL (140-400); Red Blood Count 3.89 M/mcL (3.82-4.97); Red Cell Distribution Width 17.5 % (11.5-14.5); Segmented Neutrophils % 70.9 %; White Blood Count 8.6 K/mcL (4.3-11.1)
[2020-12-29 06:32] LABS: BUN/Creatinine Ratio 20 (6-26); Blood Urea Nitrogen 20 mg/dL (8-23); Calcium 8.6 mg/dL (8.6-10.3); Carbon Dioxide 31 mEq/L (23-29); Chloride 96 mEq/L (98-107); Glucose 100 mg/dL (70-105); Osmolality,Calculated 283 (280-300); Potassium 3.7 mEq/L (3.5-5.1); Sodium 135 mEq/L (136-145); eGFR For African Americans > 60 (> 60); eGFR For Non-African Americans 54 (> 60)
[2020-12-29 08:30] LABS: Alanine Aminotransferase 16 Units/L (7-52); Albumin/Globulin Ratio 1.4 (1.1-2.2); Alkaline Phosphatase 105 Units/L (34-104); Aspartate Amino Transferase 40 Units/L (13-39); Bilirubin,Indirect 1.3 mg/dL (0.0-1.0); Bilirubin,Total 2.3 mg/dL (0.3-1.0); Globulin 2.2 g/dL (2.4-3.5); Total Protein 5.2 g/dL (6.4-8.9)
[2020-12-29] MEDS: Aspirin Enteric Coated 81 MG Tablet PO SCH (09:48)
[2020-12-29] MEDS: Sennosides/Docusate Sodium TABLET PO SCH ×2 (09:48→20:52)
[2020-12-29] MEDS: Furosemide 40 MG TABLET PO SCH (13:25)
[2020-12-29] MEDS: polyethylene glycoL 3350 17 GM POWD.PACK PO SCH (14:02)
[2020-12-29] MEDS: Albumin 25% 25gram/100mL 25 GM/100 ML IV.SOLN IVPB SCH (17:58)
[2020-12-29] MEDS ORDERED: Albumin 25% 25gram/100mL 25 GM/100 ML IV.SOLN IVPB SCH (18:00)
[2020-12-30] MEDS: Albumin 25% 25gram/100mL 25 GM/100 ML IV.SOLN IVPB SCH ×2 (05:55→09:51)
[2020-12-30 06:09] LABS: Immature Granulocytes % 0.2 % (0-4); Red Blood Count 3.39 M/mcL (3.82-4.97)
[2020-12-30 06:11] LABS: Basophils % 0.2 %; Hematocrit 29.5 % (35.3-44.9); Hemoglobin 9.3 g/dL (11.5-15.4); Immature Platelets 5.6 % (1.1-6.1); Lymphocytes # 1.1 K/mcL (0.6-4.6); Lymphocytes % 22.8 %; Mean Corpuscular HGB Conc 31.5 g/dL (31.6-35.5); Mean Corpuscular Hemoglobin 27.4 pg (28.0-33.3); Mean Platelet Volume 11.1 fL (9.4-12.4); Monocytes # 0.4 K/mcL (0.0-1.3); Monocytes % 7.9 %; Red Cell Distribution Width 17.5 % (11.5-14.5); Segmented Neutrophils % 68.9 %
[2020-12-30 06:13] LABS: Neutrophils # 3.5 K/mcL (1.6-8.9); Platelet Count 86 K/mcL (140-400)
[2020-12-30 06:42] LABS: Alanine Aminotransferase 12 Units/L (7-52); Albumin/Globulin Ratio 1.9 (1.1-2.2); Alkaline Phosphatase 82 Units/L (34-104); Aspartate Amino Transferase 30 Units/L (13-39); BUN/Creatinine Ratio 24 (6-26); Blood Urea Nitrogen 21 mg/dL (8-23); Calcium 8.4 mg/dL (8.6-10.3); Carbon Dioxide 31 mEq/L (23-29); Chloride 98 mEq/L (98-107); Globulin 1.6 g/dL (2.4-3.5); Glucose 101 mg/dL (70-105); Osmolality,Calculated 283 (280-300); Potassium 3.4 mEq/L (3.5-5.1); Sodium 135 mEq/L (136-145); Total Protein 4.6 g/dL (6.4-8.9); eGFR For African Americans > 60 (> 60); eGFR For Non-African Americans > 60 (> 60)
[2020-12-30 06:59] VITALS: BP 94/60
[2020-12-30] MEDS: Aspirin Enteric Coated 81 MG Tablet PO SCH (09:51)
[2020-12-30] MEDS: Sennosides/Docusate Sodium TABLET PO SCH (09:52)
[2020-12-30] MEDS: Furosemide 40 MG TABLET PO SCH (09:52)
[2020-12-30] MEDS: polyethylene glycoL 3350 17 GM POWD.PACK PO SCH (09:52)
== END 2020-12-30 12:47 | disposition home or self-care (01) | DRG 433 ==
LOC: EMEROOARM 17:19 → 3BNU 17:19 → SUATTDRO 23:12 → 3BNU 12-27 01:04
PROVIDERS: ADMIT Family Medicine; ATTEND Student in an Organized Health Care Education/Training Program

== ENCOUNTER 2021-01-08 10:27 | Inpatient (IN) ==
[2021-01-08] MEDS ORDERED: Isovue-370 500 ML BOTTLE IVP ONE (11:05)
[2021-01-08 11:39] LABS: Basophils % 0.2 %; Hematocrit 36.2 % (35.3-44.9); Hemoglobin 12.1 g/dL (11.5-15.4); Immature Granulocytes % 0.3 % (0-4); Lymphocytes # 1.6 K/mcL (0.6-4.6); Lymphocytes % 12.6 %; Mean Corpuscular HGB Conc 33.4 g/dL (31.6-35.5); Mean Corpuscular Hemoglobin 28.5 pg (28.0-33.3); Mean Corpuscular Volume 85.2 fL (83.0-100.0); Monocytes # 0.6 K/mcL (0.0-1.3); Monocytes % 4.7 %; Neutrophils # 10.1 K/mcL (1.6-8.9); Platelet Count 179 K/mcL (140-400); Red Blood Count 4.25 M/mcL (3.82-4.97); Red Cell Distribution Width 17.4 % (11.5-14.5); Segmented Neutrophils % 82.2 %; White Blood Count 12.3 K/mcL (4.3-11.1)
[2021-01-08 12:18] LABS: Alanine Aminotransferase 20 Units/L (7-52); Albumin 3.6 g/dL (3.5-5.7); Albumin/Globulin Ratio 1.6 (1.1-2.2); Alkaline Phosphatase 101 Units/L (34-104); Aspartate Amino Transferase 51 Units/L (13-39); BUN/Creatinine Ratio 17 (6-26); Bilirubin,Direct 1.8 mg/dL (0.0-0.2); Bilirubin,Indirect 2.7 mg/dL (0.0-1.0); Bilirubin,Total 4.5 mg/dL (0.3-1.0); Blood Urea Nitrogen 25 mg/dL (8-23); Calcium 9.7 mg/dL (8.6-10.3); Carbon Dioxide 28 mEq/L (23-29); Chloride 87 mEq/L (98-107); Globulin 2.3 g/dL (2.4-3.5); Glucose 146 mg/dL (70-105); Lipase 118 Units/L (11-82); Osmolality,Calculated 275 (280-300); Potassium 3.5 mEq/L (3.5-5.1); Sodium 129 mEq/L (136-145); Total Protein 5.9 g/dL (6.4-8.9); Troponin I < 0.03 ng/mL (< 0.04); eGFR For African Americans 42 (> 60); eGFR For Non-African Americans 35 (> 60)
[2021-01-08] MEDS ORDERED: *HR* FentaNYL (PF) 100 MCG/2 ML VIAL IVP ONE (13:24)
[2021-01-08] MEDS ORDERED: Metoclopramide 10 MG/2 ML VIAL IVP ONE (13:24)
[2021-01-08] MEDS ORDERED: Albumin 25% 25gram/100mL 25 GM/100 ML IV.SOLN IVPB ONE (15:51)
[2021-01-08] MEDS ORDERED: Acetaminophen 325 MG TABLET PO PRN (16:49)
[2021-01-08] MEDS ORDERED: *HR* HYDROcodone/Acet 5/325 mg TABLET PO PRN (16:49)
[2021-01-08] MEDS ORDERED: Naloxone 0.4 MG/ML INJ IVP PRN (16:49)
[2021-01-08 16:58] LABS: Amylase,Peritoneal Fluid 92 Units/L (No Ref Range); Glucose,Peritoneal Fluid 138 mg/dL (No Ref Range); LDH,Peritoneal Fluid 65 Units/L (No Ref Range); Total Protein,Peritoneal Fluid < 2.0 g/dL
[2021-01-08] MEDS ORDERED: Dextrose Gel 15 GM/37.5 ML TUBE PO PRN ×2 (17:01)
[2021-01-08] MEDS ORDERED: *HR* Dextrose 50 % in Water (Vial) 50 ML VIAL IVP PRN (17:01)
[2021-01-08] MEDS ORDERED: D5% in Water 1,000 ML IVC PRN (17:01)
[2021-01-08] MEDS ORDERED: Simethicone 80 MG TAB.CHEW PO PRN (17:19)
[2021-01-08] MEDS ORDERED: Nitroglycerin 0.4 MG TAB.SUBL SL PRN (17:19)
[2021-01-08] MEDS ORDERED: hydrOXYzine pamoate 25 MG CAPSULE PO PRN (17:19)
[2021-01-08 17:29] LABS: Bilirubin,Urine Moderate (Negative); Blood,Urine Small (Negative); Color,Urine Yellow (Yellow); Glucose,Urine (UA) Normal (Normal); Ketones,Urine Negative (Negative); Leukocyte Esterase,Urine Negative (Negative); Nitrite,Urine Negative (Negative); PH,Urine 5.5 pH Units (5.0-8.0); Protein,Urine >=300 mg/dL (Neg-Trace); Specific Gravity,Urine >= 1.030 (1.010-1.025); Urobilinogen,Urine Normal (Normal)
[2021-01-08 17:30] LABS: Clarity,Urine Turbid (Clear)
[2021-01-08] MEDS ORDERED: cefTRIAXone 2,000 MG in 0.9 % Sodium Chloride Mini Bag 100 ML IVPB SCH (18:00)
[2021-01-08 18:22] LABS: INR 1.5; Prothrombin Time 17.3 Seconds (9.4-12.1)
[2021-01-08] MEDS: cefTRIAXone 2,000 MG in Water for inj. (sterile) 20 ML IVP SCH (18:57)
[2021-01-08 19:07] LABS: Adenovirus Not Detected (Not Detect); Bordetella Pertussis Not Detected (Not Detect); Chlamydophila pneumoniae Not Detected (Not Detect); Coronavirus 229E Not Detected (Not Detect); Coronavirus HKU1 Not Detected (Not Detect); Coronavirus NL63 Not Detected (Not Detect); Coronavirus OC43 Not Detected (Not Detect); Human Metapneumovirus Not Detected (Not Detect); Human Rhinovirus/Enterovirus Not Detected (Not Detect); Influenza A Subtype 2009 H1 Not Detected (Not Detect); Influenza B Not Detected (Not Detect); Mycoplasma pneumoniae Not Detected (Not Detect); Parainfluenza Virus 1 Not Detected (Not Detect); Parainfluenza Virus 2 Not Detected (Not Detect); Parainfluenza Virus 3 Not Detected (Not Detect); Parainfluenza Virus 4 Not Detected (Not Detect); Respiratory Syncytial Virus Not Detected (Not Detect); SARS-CoV-2 Not Detected (Not Detect)
[2021-01-08] MEDS: Sennosides/Docusate Sodium TABLET PO SCH (20:47)
[2021-01-08] MEDS: Lactulose Oral Soln 20 GM/30 ML UDC PO SCH (20:47)
[2021-01-08] MEDS ORDERED: Melatonin 3 MG TABLET PO PRN (21:00)
[2021-01-09 05:04] LABS: Hematocrit 32.5 % (35.3-44.9); Immature Granulocytes % 0.3 % (0-4); Lymphocytes # 0.9 K/mcL (0.6-4.6); Lymphocytes % 10.2 %; Mean Corpuscular Hemoglobin 27.5 pg (28.0-33.3); Mean Platelet Volume 11.2 fL (9.4-12.4); Monocytes # 0.5 K/mcL (0.0-1.3); Monocytes % 5.4 %; Neutrophils # 7.7 K/mcL (1.6-8.9); Platelet Count 122 K/mcL (140-400); Red Blood Count 3.78 M/mcL (3.82-4.97); Red Cell Distribution Width 17.2 % (11.5-14.5); Segmented Neutrophils % 84.1 %; White Blood Count 9.2 K/mcL (4.3-11.1)
[2021-01-09 05:07] LABS: Hemoglobin 10.4 g/dL (11.5-15.4)
[2021-01-09 05:12] LABS: INR 1.6; Prothrombin Time 18.1 Seconds (9.4-12.1)
[2021-01-09 05:24] LABS: Albumin 3.3 g/dL (3.5-5.7); Albumin/Globulin Ratio 1.8 (1.1-2.2); Bilirubin,Total 3.5 mg/dL (0.3-1.0); Calcium 9.2 mg/dL (8.6-10.3); Globulin 1.8 g/dL (2.4-3.5); Magnesium 1.9 mg/dL (1.6-2.6); Phosphorous 3.6 mg/dL (2.7-4.5); Potassium 3.2 mEq/L (3.5-5.1); Total Protein 5.1 g/dL (6.4-8.9)
[2021-01-09 05:48] LABS: Folate 6.5 ng/mL (3.0-16.0)
[2021-01-09 05:51] LABS: Vitamin B12 > 1500 pg/mL (250-1100)
[2021-01-09] MEDS: Aspirin Enteric Coated 81 MG Tablet PO SCH (08:19)
[2021-01-09] MEDS: Albumin 25% 25gram/100mL 25 GM/100 ML IV.SOLN IVPB SCH (08:20)
[2021-01-09] MEDS: Multivit/Ca/Min/Fe/FA 1 TAB TABLET PO SCH (08:20)
[2021-01-09] MEDS: Sennosides/Docusate Sodium TABLET PO SCH ×2 (08:27→20:30)
[2021-01-09] MEDS: Lactulose Oral Soln 20 GM/30 ML UDC PO SCH ×2 (08:27→20:30)
[2021-01-09 09:48] LABS: RBC,Peritoneal Fluid 4000 RBC/mcL
[2021-01-09 10:30] LABS: Basophils,Peritoneal Fluid 0 %; Eosinophils,Peritoneal Fluid 0 %
[2021-01-09 10:32] LABS: Appearance of Peritoneal Fl CLOUDY (Clear)
[2021-01-09 11:42] LABS: Hematocrit 33.2 % (35.3-44.9); Hemoglobin 10.4 g/dL (11.5-15.4)
[2021-01-09] MEDS: cefTRIAXone 2,000 MG in Water for inj. (sterile) 20 ML IVP SCH (18:09)
[2021-01-10 06:11] LABS: Phosphorous 2.7 mg/dL (2.7-4.5); Potassium 3.5 mEq/L (3.5-5.1)
[2021-01-10 06:32] LABS: Hemoglobin 11.2 g/dL (11.5-15.4); Red Cell Distribution Width 17.2 % (11.5-14.5)
[2021-01-10 06:34] LABS: Hematocrit 34.4 % (35.3-44.9); Immature Platelets 7.6 % (1.1-6.1); Mean Corpuscular HGB Conc 32.6 g/dL (31.6-35.5); Mean Corpuscular Hemoglobin 27.6 pg (28.0-33.3); Mean Corpuscular Volume 84.7 fL (83.0-100.0); Mean Platelet Volume 11.8 fL (9.4-12.4); Red Blood Count 4.06 M/mcL (3.82-4.97); White Blood Count 12.1 K/mcL (4.3-11.1)
[2021-01-10] MEDS: Aspirin Enteric Coated 81 MG Tablet PO SCH (09:01)
[2021-01-10] MEDS: Lactulose Oral Soln 20 GM/30 ML UDC PO SCH ×2 (09:02→20:45)
[2021-01-10] MEDS: Sennosides/Docusate Sodium TABLET PO SCH ×2 (09:02→20:47)
[2021-01-10] MEDS: Albumin 25% 25gram/100mL 25 GM/100 ML IV.SOLN IVPB SCH (09:02)
[2021-01-10] MEDS: Multivit/Ca/Min/Fe/FA 1 TAB TABLET PO SCH (09:03)
[2021-01-10 09:35] LABS: INR 1.5; Prothrombin Time 16.6 Seconds (9.4-12.1)
[2021-01-10 09:42] LABS: Albumin 3.7 g/dL (3.5-5.7); Albumin/Globulin Ratio 1.9 (1.1-2.2); Bilirubin,Direct 1.3 mg/dL (0.0-0.2); Bilirubin,Indirect 1.6 mg/dL (0.0-1.0); Bilirubin,Total 2.9 mg/dL (0.3-1.0); Globulin 1.9 g/dL (2.4-3.5); Total Protein 5.6 g/dL (6.4-8.9)
[2021-01-10] MEDS: Ondansetron 4 MG/2 ML VIAL IVP PRN (12:17)
[2021-01-10] MEDS: Furosemide 40 MG TABLET PO SCH (12:18)
[2021-01-10] MEDS: cefTRIAXone 2,000 MG in Water for inj. (sterile) 20 ML IVP SCH (18:03)
[2021-01-10 18:27] LABS: Fluid Source for Albumin PERITONEAL FL
[2021-01-11 02:31] LABS: Mean Corpuscular Volume 83.7 fL (83.0-100.0); Mean Platelet Volume 10.5 fL (9.4-12.4); Red Cell Distribution Width 17.1 % (11.5-14.5)
[2021-01-11 02:33] LABS: Hematocrit 30.8 % (35.3-44.9); Hemoglobin 10.1 g/dL (11.5-15.4); Immature Platelets 6.5 % (1.1-6.1); Mean Corpuscular HGB Conc 32.8 g/dL (31.6-35.5); Mean Corpuscular Hemoglobin 27.4 pg (28.0-33.3); Red Blood Count 3.68 M/mcL (3.82-4.97); White Blood Count 9.6 K/mcL (4.3-11.1)
[2021-01-11 02:38] LABS: INR 1.6; Prothrombin Time 18.2 Seconds (9.4-12.1)
[2021-01-11 02:51] LABS: Albumin 3.4 g/dL (3.5-5.7); Bilirubin,Total 2.3 mg/dL (0.3-1.0); Globulin 1.7 g/dL (2.4-3.5); Magnesium 2.1 mg/dL (1.6-2.6); Phosphorous 2.9 mg/dL (2.7-4.5); Potassium 2.9 mEq/L (3.5-5.1); Total Protein 5.1 g/dL (6.4-8.9)
[2021-01-11 07:57] VITALS: BP 98/56
[2021-01-11] MEDS: Multivit/Ca/Min/Fe/FA 1 TAB TABLET PO SCH (09:20)
[2021-01-11] MEDS: Furosemide 40 MG TABLET PO SCH (09:21)
[2021-01-11] MEDS: Aspirin Enteric Coated 81 MG Tablet PO SCH (09:22)
[2021-01-11] MEDS: Lactulose Oral Soln 20 GM/30 ML UDC PO SCH (09:22)
[2021-01-11] MEDS: Sennosides/Docusate Sodium TABLET PO SCH (09:22)
[2021-01-11] MEDS: Ondansetron 4 MG/2 ML VIAL IVP PRN (11:41)
== END 2021-01-11 15:17 | disposition home health service (06) | DRG 432 ==
LOC: EMEROOARM 10:27 → 3ANU 10:27 → SUATTDRO 16:15 → 3ANU 17:05
PROVIDERS: ADMIT Internal Medicine; ATTEND Internal Medicine